=== PATIENT | male | born 1945 | race Caucasian/White ===

== ENCOUNTER 2018-11-20 17:22 | Inpatient (IN) ==
[2018-11-20] MEDS ORDERED: Ondansetron 4 MG/2 ML VIAL IVP STA (17:50)
--- NOTE | 2018-11-20 18:20 | Emergency Department Note ---
Disposition Clinical Impression: RUQ abdominal pain, Transaminitis Disposition: Admitted As Inpatient Time of Disposition: 19:12 General Adult HPI - General Chief complaint: UC Abdominal Pain Stated complaint: Gallbladder Time Seen by Provider: 11/20/18 17:35 Source: patient Mode of arrival: ambulatory Limitations: no limitations Nursing Notes Reviewed: Yes Vital Signs Reviewed: Yes - History of Present Illness HPI Narrative: 73M with PMHx of COPD, diabetes, hypertension and hyperlipidemia presents emergency department after an abnormal CAT scan done at the [place]. Patient presented today for several days of worsening epigastric burning and had a CT scan of his abdomen performed which showed cholelithiasis with possible pericholecystic fluid. Patient was transferred to our facility for further evaluation of possible cholecystitis. Outpatient labs demonstrated a leukocytosis and elevated liver enzymes. Pt is feeling better at this time after receiving a GI cocktail. Patient states that he has been having epigastric and right upper quadrant pain that has been worsening over the past several days he describes this as burning in nature. He is also admitting to some nausea but no vomiting. He has not had any difficulties with bowel movements. He has never had any difficulties at this before. He denies fevers, chills, chest pain, shortness breath, dysuria. Pain Scale: 0 - Related Data Home Medications Medication Instructions Recorded Confirmed Atorvastatin Calcium [Lipitor] 80 mg PO HS 11/20/18 11/20/18 Baclofen [Lioresal] 10 mg PO BID PRN 11/20/18 11/20/18 Chlorthalidone 25 mg PO DAILY 11/20/18 11/20/18 Cholecalciferol (D-3) [Vitamin D] 2,000 unit PO DAILY 11/20/18 11/20/18 Cholecalciferol (D-3) [Vitamin D] 500 unit PO BID 11/20/18 11/20/18 Diltiazem CD (24hr) [Cardizem CD] 180 mg PO DAILY 11/20/18 11/20/18 Dulaglutide [Trulicity] 1.5 mg SQ DAILY 11/20/18 11/20/18 Fluticasone Furoate [Arnuity 50 mcg IH DAILY PRN 11/20/18 11/20/18 Ellipta] Insulin ASPART [NovoLOG] 18 unit SQ DAILY 11/20/18 11/20/18 Insulin ASPART [NovoLOG] 20 unit SQ 1800 11/20/18 11/20/18 Insulin Glargine,Hum.rec.anlog 50 unit SQ BID 11/20/18 11/20/18 [Basaglar Federicoikpen U-100] Lisinopril [Zestril] 40 mg PO DAILY 11/20/18 11/20/18 Potassium Chloride [Klor-Con 10] 20 meq PO DAILY 11/20/18 11/20/18 Ranitidine HCl [Acid Handle Bender] 150 mg PO BID 11/20/18 11/20/18 Rivaroxaban [Xarelto] 20 mg PO 1800 11/20/18 11/20/18 Tramadol HCl [Ultram] 50 mg PO TID PRN 11/20/18 11/20/18 metFORMIN [Glucophage] 1,000 mg PO BIDWM 11/20/18 11/20/18 Allergies Allergy/AdvReac Type Severity Reaction Status Date / Time nifedipine [From Procardia] Allergy See Verified 11/20/18 18:12 Comments All systems ED: reviewed and negative except as stated. Review of Systems: As Per HPI Constitutional: Denies: fever, chills, weakness Cardiovascular: Denies: chest pain, palpitations, dyspnea on exertion Respiratory: Denies: cough, dyspnea, wheezes Gastrointestinal: Reports: abdominal pain, nausea. Denies: vomiting, diarrhea, constipation Genitourinary: Denies: dysuria, hematuria Musculoskeletal: Denies: back pain Integumentary: Denies: rash Neurological: Denies: headache Endocrine: Denies: fatigue Past Medical History - Past Medical History Attestation: Yes The following information was validated with the patient. Source: patient Medical history: Reports: aortic aneurysm, COPD, diabetes, hyperlipidemia, hypertension Psychiatric history: Reports: no psych history - Social History Smoking Status: Never smoker Smokeless Tobacco Status: No Alcohol use: Reports: none Drug use: Reports: none Physical Exam - General Limitations: no limitations General appearance: alert, in no apparent distress - Head Head exam: atraumatic, normocephalic - Eye Eye exam: Present: normal appearance, scleral icterus - Chest Chest inspection: Present: normal inspection. Absent: tenderness, rash - Respiratory Respiratory exam: Present: normal lung sounds bilaterally. Absent: wheezes - Cardiovascular Cardiovascular exam: Present: regular rate, normal rhythm - Abdominal Exam Abdominal exam: Present: soft, tenderness, Greenberg's sign. Absent: distention, guarding, rebound, rigidity, tenderness at McBurney's Point Abdominal tenderness: Present: RUQ, diffuse, mild - Extremities Exam Extremities exam: Present: normal inspection. Absent: tenderness, pedal edema - Neurological Exam Neurological exam: Present: alert, oriented X3 - Psychiatric Psychiatric exam: Present: normal affect, normal mood - Skin Skin exam: Present: warm, dry, intact Course Vital Signs Temperature 99.8 F H 11/20/18 17:30 Pulse Rate 96 11/20/18 17:30 Respiratory Rate 14 11/20/18 17:30 Blood Pressure 137/92 11/20/18 17:30 O2 Sat by Pulse Oximetry 96 11/20/18 17:30 Temperature 99.8 F H 11/20/18 17:30 Pulse Rate 96 11/20/18 17:30 Respiratory Rate 14 11/20/18 17:30 Blood Pressure 137/92 11/20/18 17:30 O2 Sat by Pulse Oximetry 96 11/20/18 17:30 Oxygen Delivery Oxygen Delivery Room Air Medical Decision Making - [facility] Narrative Medical decision making narrative: Patient presents from the [place] after an abnormal CAT scan demonstrates possible cholecystitis. We will obtain EKG, basic labs, troponin, and an ultrasound of the right upper quadrant to look for signs of acute cholecystitis. 1904 - patient's EKG does not demonstrate any acute abnormalities. Ultrasound of the right upper quadrant shows some possible CBD dilatation at 8 mm without signs of acute cholecystitis. Spoke with the hospitalist who is concern for acute ascending cholangitis. He requests we speak with GI prior to admission. 1909 - Dr. Henley has spoken with Dr. Whitlock who states that he will do an ERCP on the patient the morning. He requests we start 3 g of Unasyn and give the patient a liter of fluids. Patient has been accepted to the hospital at this time. - Medical Records Medical records reviewed: Yes I reviewed the patient's medical records. - Lab Data Lab results reviewed: Yes I reviewed the patient's lab results. - Radiology Data Radiology results reviewed: Yes I reviewed the patient's radiology results. - EKG Data EKG #1 EKG attestation: Yes I reviewed and interpreted this EKG. EKG results narrative: EKG obtained at Heart rate 96 bpm, TX interval 230, QRS duration 103, QT 352, QTC 445 Sinus rhythm with a prolonged TX interval. No signs of ST segment elevations or depressions. No other acute T-wave abnormalities. No old EKG for comparison at this time.
[2018-11-20] MEDS ORDERED: cefTRIAXone 2,000 MG in Water for inj. (sterile) 20 ML IVP ONE (18:22)
--- NOTE | 2018-11-20 18:24 | Emergency Department Note ---
Disposition Clinical Impression: Abdominal pain Qualifiers: Abdominal location: right upper quadrant Qualified Code(s): R10.11 - Right upper quadrant pain Disposition: Admitted As Inpatient Condition: Fair Forms: ED Satisfaction Letter, Work/School Release Time of Disposition: 19:12 General Adult HPI - General Chief complaint: ED Abdominal Pain Stated complaint: Gallbladder Time Seen by Provider: 11/20/18 17:35 Source: patient Mode of arrival: ambulatory Limitations: no limitations Nursing Notes Reviewed: Yes Vital Signs Reviewed: Yes - History of Present Illness Pain Scale: 0 - Related Data Home Medications Medication Instructions Recorded Confirmed Atorvastatin Calcium [Lipitor] 80 mg PO HS 11/20/18 11/20/18 Baclofen [Lioresal] 10 mg PO BID PRN 11/20/18 11/20/18 Chlorthalidone 25 mg PO DAILY 11/20/18 11/20/18 Cholecalciferol (D-3) [Vitamin D] 2,000 unit PO DAILY 11/20/18 11/20/18 Cholecalciferol (D-3) [Vitamin D] 500 unit PO BID 11/20/18 11/20/18 Diltiazem CD (24hr) [Cardizem CD] 180 mg PO DAILY 11/20/18 11/20/18 Dulaglutide [Trulicity] 1.5 mg SQ DAILY 11/20/18 11/20/18 Fluticasone Furoate [Arnuity 50 mcg IH DAILY PRN 11/20/18 11/20/18 Ellipta] Insulin ASPART [NovoLOG] 18 unit SQ DAILY 11/20/18 11/20/18 Insulin ASPART [NovoLOG] 20 unit SQ 1800 11/20/18 11/20/18 Insulin Glargine,Hum.rec.anlog 50 unit SQ BID 11/20/18 11/20/18 [Basaglar Kwikpen U-100] Lisinopril [Zestril] 40 mg PO DAILY 11/20/18 11/20/18 Potassium Chloride [Klor-Con 10] 20 meq PO DAILY 11/20/18 11/20/18 Ranitidine HCl [Acid Cigarette Tipper] 150 mg PO BID 11/20/18 11/20/18 Rivaroxaban [Xarelto] 20 mg PO 1800 11/20/18 11/20/18 Tramadol HCl [Ultram] 50 mg PO TID PRN 11/20/18 11/20/18 metFORMIN [Glucophage] 1,000 mg PO BIDWM 11/20/18 11/20/18 Allergies Allergy/AdvReac Type Severity Reaction Status Date / Time nifedipine [From Procardia] Allergy See Verified 11/20/18 18:12 Comments Past Medical History - Past Medical History Medical history: Reports: aortic aneurysm, COPD, diabetes, hyperlipidemia, hypertension Psychiatric history: Reports: no psych history - Social History Smoking Status: Never smoker Smokeless Tobacco Status: No Alcohol use: Reports: none Drug use: Reports: none Physical Exam - General Limitations: no limitations General appearance: alert Course Vital Signs Temperature 99.8 F H 11/20/18 17:30 Pulse Rate 96 11/20/18 17:30 Respiratory Rate 14 11/20/18 17:30 Blood Pressure 137/92 11/20/18 17:30 O2 Sat by Pulse Oximetry 96 11/20/18 17:30 Temperature 99.8 F H 11/20/18 18:18 Pulse Rate 96 11/20/18 18:56 Respiratory Rate 20 11/20/18 18:56 Blood Pressure 138/88 11/20/18 18:56 O2 Sat by Pulse Oximetry 95 11/20/18 18:56 Oxygen Delivery Oxygen Delivery Room Air Attestation Statement - Attestation Attestation: I examined this patient and my medical decision-making was reviewed with the Resident Physician. I agree with the documented findings, disposition and treatment plan as described except to the extent set forth below. Patient to the ED with an abnormal gallbladder on his CT scan. Patient has had upper abdominal pain and inability for a couple of days. He went to the [place] urgent care and had an abdominal CT scan was concerning for cholecystitis and possible choledocholithiasis. On examination he has right upper quadrant abdominal tenderness. Plan. [place]. Repeat labs. Blood cultures and lactic acid. Likely admission. No signs of acute cholecystitis on ultrasound. The patient is given broad- spectrum antibiotics regardless. He is admitted to medicine with GI consult. Gallbladder Ultrasound 11/20/18 17:40 IMPRESSION: 1. The gallbladder is under distended, which partially limits evaluation. There appears to be a mobile stone in the gallbladder with gallbladder wall thickening. No sonographic Greenberg sign is present. 2. Mild diffuse fatty infiltration of the liver. D/ / Cesar Dalal MD / Cesar Dalal MD Interpreting Provider: Cesar Dalal MD
[2018-11-20] MEDS ORDERED: 0.9 % Sodium Chloride 1,000 ML IVC ONE (19:09)
[2018-11-20] MEDS ORDERED: Ampicillin/Sulbactam 3,000 MG in 0.9 % Sodium Chloride Mini Bag 100 ML IVPB ONE (19:09)
[2018-11-20 19:14] LABS: INR 1.5; Prothrombin Time 16.5 Seconds (9.4-12.1)
[2018-11-20 19:24] LABS: Alanine Aminotransferase 398 Units/L (7-52); Albumin 4.2 g/dL (3.5-5.7); Albumin/Globulin Ratio 1.8 (1.1-2.2); Alkaline Phosphatase 171 Units/L (34-104); Aspartate Amino Transferase 248 Units/L (13-39); BUN/Creatinine Ratio 14 (6-26); Bilirubin,Total 5.7 mg/dL (0.3-1.0); Blood Urea Nitrogen 16 mg/dL (8-23); Calcium 9.2 mg/dL (8.6-10.3); Carbon Dioxide 29 mEq/L (23-29); Chloride 98 mEq/L (98-107); Globulin 2.3 g/dL (2.4-3.5); Glucose 240 mg/dL (70-105); Osmolality,Calculated 293 (280-300); Potassium 3.2 mEq/L (3.5-5.1); Sodium 137 mEq/L (136-145); Total Protein 6.5 g/dL (6.4-8.9); eGFR For African Americans > 60 (> 60); eGFR For Non-African Americans > 60 (> 60)
[2018-11-20 19:25] LABS: Basophils % 0.2 %; Eosinophils % 0.2 %; Hematocrit 45.3 % (37.5-50.1); Hemoglobin 14.9 g/dL (12.9-16.9); Immature Granulocytes % 0.6 % (0-4); Lymphocytes # 0.7 K/mcL (0.6-4.6); Mean Corpuscular HGB Conc 32.9 g/dL (31.6-35.5); Mean Corpuscular Hemoglobin 26.8 pg (28.0-33.3); Mean Corpuscular Volume 81.5 fL (83.0-100.0); Mean Platelet Volume 10.6 fL (9.4-12.4); Monocytes # 0.9 K/mcL (0.0-1.3); Monocytes % 8.6 %; Neutrophils # 8.6 K/mcL (1.6-8.9); Platelet Count 186 K/mcL (140-400); Red Blood Count 5.56 M/mcL (4.19-5.50); Red Cell Distribution Width 15.4 % (11.5-14.5); Segmented Neutrophils % 83.4 %; White Blood Count 10.3 K/mcL (4.3-11.1)
[2018-11-20 19:35] LABS: Troponin I 0.04 ng/mL (< 0.04)
[2018-11-20] MEDS ORDERED: Naloxone 0.4 MG/ML INJ IVP PRN (20:23)
[2018-11-20] MEDS ORDERED: Ondansetron ODT 4 MG TAB.RAPDIS SL PRN (20:23)
--- NOTE | 2018-11-20 20:37 | Internal Med History&Physical ---
Date of Encounter: 11/21/18 Time of Encounter: 20:31 Internal Medicine - H&P: HPI Chief complaint: abdominal pain. Admitted From: Home History of present illness: Mr. Murrell is a 73 year old male with past medical history of hypertension, type 2 diabetes, atrial fibrillation on xeralto, severe CAD status post stenting, COPD not oxygen dependent presented to the ED for acute on chronic abdominal pain. Face to face encounter occurred at 8:30pm. Patient stated that he has been having abdominal pain for around a year that is mostly left side positional sharp exacerbated laying in the left side improves with rest and laying in a different position. Patient however yesterday while going to a pickup truck. Noticed the pain progressed to become sharp umbilical 10/10 related that did not alleviate with movement and exacerbated associated with nausea, fever, no change in bowel, dysuria, chest pain or shortness of breath. Patient reported that he have went to the [place] and was unable to go [place] due to the ED being closed thus came here. Personally Reviewed patient's past medical, surgical, family and social history. Family history both parents of old age, patient denied smoking drinking or drugs. Patient stated that he has history of abdominal aortic aneurysm that is unclear of size (5 cm x 7 cm that is followed up every 6 months). Patient also complained of left shoulder pain that is sharp and worst with movement has been going on for a few years and did not seek attention to it. CODE STATUS was discussed and patient proceed with full code. Past Med Surg Social Fam HX - Past Medical History Medical history: aortic aneurysm, COPD, diabetes, hyperlipidemia, hypertension Psychiatric history: no psych history - Social History Smoking Status: Never smoker Smokeless Tobacco Status: No Alcohol use: none Drug use: none Internal Medicine - H&P: Meds Atorvastatin Calcium [Lipitor] 80 mg PO HS 11/20/18 [History] Baclofen [Lioresal] 10 mg PO BID PRN 11/20/18 [History] Calcium Carbonate/Vitamin D3 [Calcium 500-Vit D3 200 Caplet] 1 tab PO BID 11/20/18 [History] Chlorthalidone 25 mg PO DAILY 11/20/18 [History] Cholecalciferol (D-3) [Vitamin D] 2,000 unit PO DAILY 11/20/18 [History] Diltiazem CD (24hr) [Cardizem CD] 180 mg PO DAILY 11/20/18 [History] Dulaglutide [Trulicity] 1.5 mg SQ TH 11/20/18 [History] Fluticasone Furoate [Arnuity Ellipta] 50 mcg IH DAILY PRN 11/20/18 [History] Insulin ASPART [NovoLOG] 18 unit SQ QAM 11/20/18 [History] Insulin ASPART [NovoLOG] 20 unit SQ QPM 11/20/18 [History] Insulin Glargine,Hum.rec.anlog [Basaglar Kwikpen U-100] 50 unit SQ BID 11/20/18 [History] Lisinopril [Zestril] 40 mg PO DAILY 11/20/18 [History] Metformin HCl [Glucophage] 1,000 mg PO BID 11/20/18 [History] Potassium Chloride [Klor-Con 10] 20 meq PO DAILY 11/20/18 [History] Ranitidine HCl [Acid Paving Inspector] 150 mg PO BID 11/20/18 [History] Rivaroxaban [Xarelto] 20 mg PO 1800 11/20/18 [History] Tramadol HCl [Ultram] 50 mg PO TID PRN 11/20/18 [History] Allergy/AdvReac Type Severity Reaction Status Date / Time nifedipine [From Procardia] AdvReac Headache Verified 11/20/18 23:58 All Systems PM: A 10-system review of systems was performed and is negative for pertinent findings except as documented above in the HPI. Review of systems: General: No unintentional weightloss, + fever. Head: No headahce, No injury. Ears: No discharge, No earache Eyes: No drainage, No eye pain Mouth and Throat: No new ulcers, No pain Nose and Sinus: No new congestion, No pain, Respiratory: No cough, No sputum production, No dyspnea Cardiovascular: No chest pain, No palpitations. Gastrointestinal: + nausea, + abdominal pain Genital Tract: No discharge, No pain Urinary Tract: No dysuria, No discharge. MSK: No new/worsening joint pain or new/worsening muscle ache. Endocrine: No cold intolerance, No polyuria Psychological: No suicidal, No homocidal ideation. - Constitutional Vitals: Temp Pulse Resp BP Pulse Ox 99.8 F H 96 20 133/94 95 11/20/18 18:18 11/20/18 18:56 11/20/18 19:55 11/20/18 19:55 11/20/18 18:56 Exam: General Appearance: Appearing as age, well-nourished in no acute distress. Head: Atraumatic normocephalic Skin: Normal texture, normal turgor, warm, dry. Eyes: Conjunctivae not pale with no erythema, drainage, or ulcers. icteric. Neck: No Lymphadenopathy in the anterior/posterior cervical chain. No thyromegaly, masses or ulcers. Trachea midline. Heart: RRR, no murmurs. Capillary refill 3 seconds Lungs: No accessory muscle usage, lungs clear to auscultation bilaterally, no wheezes or crackles. Extremities: No pitting edema, clubbing, cyanosis, or ulcers. Abdomen: distended, normoactive bowel sounds. tender to palpation worse in the RUQ with negative greenberg, rovsing, and mcburney tendernes. no hepatomegally. No guarding. Neuro: AOx3 with no new sensory loss or focal deficits. MSK: Strength 5/5 Upper extremity equal bilaterally. Strength 5/5 Lower extremity equal bilaterally Internal Med - H&P Results - Labs CBC & Chem 7: 11/20/18 17:40 11/20/18 18:42 Labs: Short CBC 11/20/18 Range/Units 17:40 WBC 10.3 (4.3-11.1) K/mcL Hgb 14.9 (12.9-16.9) g/dL Hct 45.3 (37.5-50.1) % Plt Count 186 (140-400) K/mcL Neutrophils # 8.6 (1.6-8.9) K/mcL BMP 11/20/18 18:42 Sodium 137 Potassium 3.2 L Chloride 98 Carbon Dioxide 29 BUN 16 Creatinine 1.11 Glucose 240 H Calcium 9.2 Cardiac Enzymes 11/20/18 Range/Units 18:42 Troponin I 0.04 H* (< 0.04) ng/mL Liver Function 11/20/18 Range/Units 18:42 Total Bilirubin 5.7 H (0.3-1.0) mg/dL AST 248 H (13-39) Units/L ALT 398 H (7-52) Units/L Alkaline Phosphatase 171 H (34-104) Units/L Albumin 4.2 (3.5-5.7) g/dL - Impressions ITS Impressions Gallbladder Ultrasound 11/20/18 17:40 IMPRESSION: 1. The gallbladder is under distended, which partially limits evaluation. There appears to be a mobile stone in the gallbladder with gallbladder wall thickening. No sonographic Greenberg sign is present. 2. Mild diffuse fatty infiltration of the liver. D/ / Cesar Dalal MD / Cesar Dalal MD Interpreting Provider: Cesar Dalal MD Chest X-Ray 11/20/18 17:50 IMPRESSION: Cardiomegaly with no acute finding in the chest. D/ / Danny Schaeffer MD / Danny Schaeffer MD Interpreting Provider: Danny Schaeffer MD - Summary of Assessment and Plan Summary of Assessment and Plan: 1.Abdominal pain: Etiology choledocholithiasis with suspected AAA Ultrasound showed cholelithiasis with common bile duct enlargement at 8 mm. History of AAA reported 5-7cm in legth- US abdomen to check for size. requesting outside records. Consult GI for ERCP Pain control and NPO. 2. Hypokalemia: Replace 3.Uncontrolled type 2 diabetes, Insulin sliding scale correction. We will continue to monitor 4. Elevated LFTs: Hepatitis panel ordered, ultrasound liver showed no intrahepatic biliary ductal dilatation 5. Elevated troponin: Patient remains asymptomatic EKG my interpretation showing normal sinus rhythm with primary AV block. likely demand ischemia. Continue to trend, and cardiology consultation Chronic medical conditions: Atrial fibrillation: Continue anticoagulation and Hypertension: Held medication COPD: Do not scheduled Severe CAD: Continue medication. DVT prophylaxis: Patient is a well-developed ago Disposal: Patient will likely stay for 2 days and more - Time Spent With Patient Total time spent is greater than 37 minutes 50% in coordination of care (as documented) at patient's floor/unit and/or counseling patient: Greater than 35 minutes - VTE Reasons for not Prescribing Prophylaxis: Not indicated-Anticoagulated or INR therapeutic
[2018-11-20] MEDS ORDERED: Potassium Chloride Elixir 20 MEQ/15 ML UDC PO ONE (20:59)
[2018-11-20] MEDS ORDERED: *HR* Dextrose 50 % in Water (Syg) 50 ML SYRINGE IVP PRN (21:01)
[2018-11-20] MEDS ORDERED: Dextrose Gel 15 GM/37.5 ML TUBE PO PRN ×2 (21:01)
[2018-11-20] MEDS ORDERED: D5% in Water 1,000 ML IVC PRN (21:01)
[2018-11-20 21:24] LABS: Estimated Average Glucose 186 mg/dl
[2018-11-21] MEDS: Insulin LISPRO 300 UNITS/3 ML VIAL SQ SCH ×4 (00:48→17:45)
[2018-11-21] MEDS: Insulin DETEMIR 100 UNIT/ML X5UNITS SQ SCH ×3 (00:48→19:56)
[2018-11-21] MEDS: MetroNIDAZOLE 500 MG/100 ML 500 MG/100 ML BAG IVPB SCH ×3 (00:49→15:23)
[2018-11-21] MEDS: Acetaminophen 650 MG RECTAL SUPP RC PRN ×2 (01:06→08:11)
[2018-11-21 05:50] LABS: Basophils % 0.3 %; Eosinophils % 0.1 %; Hematocrit 48.6 % (37.5-50.1); Hemoglobin 15.5 g/dL (12.9-16.9); Immature Granulocytes % 0.4 % (0-4); Lymphocytes # 0.5 K/mcL (0.6-4.6); Lymphocytes % 5.3 %; Mean Corpuscular HGB Conc 31.9 g/dL (31.6-35.5); Mean Corpuscular Hemoglobin 26.6 pg (28.0-33.3); Mean Corpuscular Volume 83.4 fL (83.0-100.0); Mean Platelet Volume 10.6 fL (9.4-12.4); Monocytes # 0.5 K/mcL (0.0-1.3); Monocytes % 5.1 %; Neutrophils # 8.4 K/mcL (1.6-8.9); Platelet Count 162 K/mcL (140-400); Red Blood Count 5.83 M/mcL (4.19-5.50); Red Cell Distribution Width 15.5 % (11.5-14.5); Segmented Neutrophils % 88.8 %; White Blood Count 9.5 K/mcL (4.3-11.1)
[2018-11-21 06:01] LABS: INR 1.4; Prothrombin Time 15.5 Seconds (9.4-12.1)
[2018-11-21 06:09] LABS: Alanine Aminotransferase 342 Units/L (7-52); Albumin 4.5 g/dL (3.5-5.7); Albumin/Globulin Ratio 1.6 (1.1-2.2); Alkaline Phosphatase 182 Units/L (34-104); Aspartate Amino Transferase 169 Units/L (13-39); BUN/Creatinine Ratio 13 (6-26); Bilirubin,Total 4.4 mg/dL (0.3-1.0); Blood Urea Nitrogen 16 mg/dL (8-23); Calcium 9.5 mg/dL (8.6-10.3); Carbon Dioxide 29 mEq/L (23-29); Chloride 98 mEq/L (98-107); Globulin 2.8 g/dL (2.4-3.5); Glucose 174 mg/dL (70-105); Magnesium 1.5 mg/dL (1.6-2.6); Osmolality,Calculated 293 (280-300); Phosphorous 2.9 mg/dL (2.7-4.5); Potassium 3.1 mEq/L (3.5-5.1); Sodium 139 mEq/L (136-145); Total Protein 7.3 g/dL (6.4-8.9); eGFR For African Americans > 60 (> 60); eGFR For Non-African Americans 59 (> 60)
--- NOTE | 2018-11-21 07:52 | Anesthesia Evaluation PreOp ---
Date of Encounter: 11/21/18 Time of Encounter: 09:01 - Past History Planned Operation: ERCP Cardiac History: HTN, Hyperlipidemia, Arrhythmia (a-fib on Xarelto), Cardiac Stent (stents were placed "a long time ago", he reports he is active at home without angina), Other (AAA being followed, CAD) Pulmonary History: COPD (uses O2 at night) CITY PLANNER History: Denies Any Significant HX Other Medical History: Diabetes Type II Anesthesia History: Past Anesthesia (denies PSH) Alcohol Use: none Drug use: none Medications and Allergies Atorvastatin Calcium [Lipitor] 80 mg PO HS 11/20/18 [History] Baclofen [Lioresal] 10 mg PO BID PRN 11/20/18 [History] Calcium Carbonate/Vitamin D3 [Calcium 500-Vit D3 200 Caplet] 1 tab PO BID 11/20/18 [History] Chlorthalidone 25 mg PO DAILY 11/20/18 [History] Cholecalciferol (D-3) [Vitamin D] 2,000 unit PO DAILY 11/20/18 [History] Diltiazem CD (24hr) [Cardizem CD] 180 mg PO DAILY 11/20/18 [History] Dulaglutide [Trulicity] 1.5 mg SQ TH 11/20/18 [History] Fluticasone Furoate [Arnuity Ellipta] 50 mcg IH DAILY PRN 11/20/18 [History] Insulin ASPART [NovoLOG] 18 unit SQ QAM 11/20/18 [History] Insulin ASPART [NovoLOG] 20 unit SQ QPM 11/20/18 [History] Insulin Glargine,Hum.rec.anlog [Basaglar Kwikpen U-100] 50 unit SQ BID 11/20/18 [History] Lisinopril [Zestril] 40 mg PO DAILY 11/20/18 [History] Metformin HCl [Glucophage] 1,000 mg PO BID 11/20/18 [History] Potassium Chloride [Klor-Con 10] 20 meq PO DAILY 11/20/18 [History] Ranitidine HCl [Acid Functional Support Analyst] 150 mg PO BID 11/20/18 [History] Rivaroxaban [Xarelto] 20 mg PO 1800 11/20/18 [History] Tramadol HCl [Ultram] 50 mg PO TID PRN 11/20/18 [History] Allergy/AdvReac Type Severity Reaction Status Date / Time nifedipine [From Procardia] AdvReac Headache Verified 11/20/18 23:58 - Meds/Allergy Pre-op Review Medications Reviewed: Yes Allergies Reviewed: Yes Beta Blockers on Current Med List: No Anesthesia Results - Labs 11/21/18 05:28 11/21/18 05:28 Anesthesia Exam Selected Entries 11/21/18 07:01 Temperature 100.9 F H Pulse Rate 85 Respiratory Rate 16 Blood Pressure 126/75 O2 Sat by Pulse Oximetry 95 Oxygen Flow Rate (LPM) 3 Laboratory Tests 11/21/18 11/21/18 05:28 05:28 WBC 9.5 Hgb 15.5 Hct 48.6 Plt Count 162 Sodium 139 Potassium 3.1 L BUN 16 Creatinine 1.21 Weight: 103kg BMI 31 NPO (# of Hours): 8 - HEENT Pupil (Motor): Pupils equal Mallampati: II Teeth: Edentulous Oral Opening: Greater than 3 - CITY PLANNER LOC: Oriented CITY PLANNER Motor: Normal RUE, Normal LUE, Normal RLE, Normal LLE, Normal Face CITY PLANNER Sensory: Normal: RUE, LUE, RLE, LLE, Face - Cardiac Rhythm: Regular Murmur: None - Pulmonary Breath Sounds: bilateral Clear Respiratory Effort: Symmetrical Anesthesia Assess/Plan ASA Score: 4 Level of consciousness: Cooperative, Oriented Anesthetic Plan: General Monitoring Plan: Standard Monitors Recovery Plan: PACU (agrees to [place])
[2018-11-21] MEDS ORDERED: Lidocaine -MPF 2% 2 ML VIAL ONE (08:02)
[2018-11-21] MEDS ORDERED: Lidocaine -MPF 4% 5 ML AMPUL ONE (08:02)
[2018-11-21] MEDS ORDERED: *HR* Propofol 200 MG/20 ML VIAL IVP ONE (08:14)
[2018-11-21] MEDS ORDERED: *HR* FentaNYL (PF) 100 MCG/2 ML VIAL ONE ×2 (08:38→09:26)
[2018-11-21] MEDS ORDERED: Ondansetron 4 MG/2 ML VIAL ONE (08:44)
[2018-11-21] MEDS ORDERED: *HR* PHENYLEPHRINE 1,000 MCG/10 ML SYRINGE IVP ONE ×3 (08:47→08:56)
--- NOTE | 2018-11-21 08:51 | Electrocardiograph Report ---
[facility] Test Date: 2018-11-20 Pat Name: Demario Murrell Department: [id number] Room: 3A46 Gender: M Electronic Components Assembler: : [id number] Requested By: Bouchra Lucio Order Number: [id number] Reading MD: Maximus Chaudhry Measurements Intervals [place] Rate: 96 P: -33 NE: 230 QRS: 59 QRSD: 103 T: 9 QT: 352 QTc: 445 Interpretive Statements Sinus rhythm Atrial premature complexes Prolonged NE interval Abnormal R-wave progression, late transition Borderline T wave abnormalities Electronically Signed On 11-21-2018 8:49:49 EDT by Maximus Chaudhry
[2018-11-21] MEDS: Ringers Solution, Lactated 1,000 ML IVC SCH (08:57)
[2018-11-21] MEDS ORDERED: *HR* Phenylephrine 10 MG/ML VIAL ONE (09:01)
[2018-11-21] MEDS ORDERED: *HR* Succinylcholine 200 MG/10 ML VIAL IVP ONE (10:04)
--- NOTE | 2018-11-21 10:26 | Gastroenterology Consult Note ---
<Davin Peterson - Last Filed: 11/21/18 10:31> Date of Encounter: 11/21/18 Time of Encounter: 08:20 - Assessment and plan (1) Abdominal pain Current Visit: Yes Status: Acute Assessment and plan: CT at [facility] demonstrates possible cholecystitis. RUQ US showed allbladder is under distended, which partially limits evaluation, appears to be a mobile stone in the gallbladder with gallbladder wall thickening, and fatty liver. On admission WBC 10.3, TB 5.7, AST 248, ALT 398, AP 171, and lipase 80. Today WBC 9.5, TB 4.4, AST 169, ALT 342, AP 182. Patient febrile (Tmax 102.3 at 23:15 yesterday) with chills this morning. Continue antibiotics. Check amylase. Concern for ascending cholangitis and choledocholithiasis. Plan for ERCP today with possible stent placement. Keep patient NPO for procedure. Recommend consulting Surgery for possible cholecystectomy. Qualifiers: Abdominal location: epigastric Qualified Code(s): R10.13 - Epigastric pain - Time Spent With Patient Total time spent is greater than 50% in coordination of care (as documented) at patient's floor/unit and/or counseling patient: GI History of Present Illness - Data of Consult Patient: new to practice Consult date: 11/21/18 Requesting Physician: Huma Pepper MD - Consult Narrative Reason for consult: Possible CBD obstruction, cholangitis History of present illness: Mr. Murrell is a 73 year old male with PMHx of aortic aneurysm, COPD, DM, HLD, H [place] presented to the ED from the [place] for acute on chronic abdominal pain. He reports pain began 2-3 days ago and started in epigastric region and radiated to his back between shoulder blades. CT at [place] demonstrates possible cholecystitis. RUQ US showed allbladder is under distended, which partially limits evaluation, appears to be a mobile stone in the gallbladder with gallbladder wall thickening, and fatty liver. On admission WBC 10.3, TB 5.7, AST 248, ALT 398, AP 171, and lipase 80. Today WBC 9.5, TB 4.4, AST 169, ALT 342, AP 182. Patient complains of fever and chills overnight. He states last dose of Xarelto was 2 days ago. Procedure: No record NSAIDs: None Anticoagulation: Xarelto Past Med Surg Social Fam HX - Past Medical History Medical history: aortic aneurysm, COPD, diabetes, hyperlipidemia, hypertension Psychiatric history: no psych history - Social History Smoking Status: Never smoker Smokeless Tobacco Status: No Alcohol use: none Drug use: none - Gastrointestinal Gastrointestinal: Present: as per HPI - Constitutional Constitutional: as per HPI - EENT Eyes: as per HPI Ears: Present: as per HPI Nose, mouth and throat: Present: as per HPI - Cardiovascular Cardiovascular ROS: Present: as per HPI - Respiratory Respiratory IM: Present: as per HPI - Genitourinary Genitourinary: Absent: change in color, Urinary frequency - Neurological ROS Neurological GI: Present: as per HPI - Hematologic/Lymphatic Hematologic/Lymphatic pediatric: Present: as per HPI - Musculoskeletal Musculoskeletal ROS GI: Present: as per HPI - Integumentary Integumentary GI: Present: as per HPI - Psychiatric ROS Psychiatric GI: Present: as per HPI - Endocrine Endocrine IM: Present: as per HPI - Constitutional Vitals: Temp Pulse Resp BP Pulse Ox 101 F H 101 16 149/86 90 11/21/18 08:54 11/21/18 08:54 11/21/18 08:54 11/21/18 08:54 11/21/18 08:54 General appearance: Present: cooperative, A&O X 3, no acute distress, answers questions appropriately - Head Head exam: Present: atraumatic, normocephalic - Eye Eye exam: Present: normal appearance, sclera anicteric - ENT ENT exam: Present: mucous membranes dry - Neck Neck exam general surgery: Present: normal inspection, trachea midline - Respiratory Respiratory exam: Present: CTAB. Absent: rales, rhonchi - Cardiovascular Cardiovascular exam: Present: RRR, +S1, +S2 - GI/Abdominal GI/Abdominal exam: Present: soft, tenderness (mild epigastric tenderness), no peritoneal signs. Absent: distended, firm, guarding - Rectal Rectal exam: Present: deferred - Extremities Exam Extremities exam: Present: warm - Neurological Exam Neurological exam: Present: no focal deficits - Psychiatric Psychiatric exam: Present: normal affect, normal mood - Skin Skin exam: Present: dry, intact, normal color, warm Results - Labs CBC & Chem 7: 11/21/18 05:28 11/21/18 05:28 Labs: Last Result 11/21/18 05:28 Calcium 9.5 Entire Visit 11/21/18 11/21/18 11/21/18 05:28 05:28 05:28 Hgb 15.5 Hct 48.6 PT 15.5 H Total Bilirubin 4.4 H AST 169 H ALT 342 H - ABG ABG results: PT/INR, D-dimer PT 15.5 Seconds (9.4-12.1) H 11/21/18 05:28 - Impressions Impressions Gallbladder Ultrasound 11/20/18 17:40 IMPRESSION: 1. The gallbladder is under distended, which partially limits evaluation. There appears to be a mobile stone in the gallbladder with gallbladder wall thickening. No sonographic Greenberg sign is present. 2. Mild diffuse fatty infiltration of the liver. D/ / Cesar Dalal MD / Cesar Dalal MD Interpreting Provider: Cesar Dalal MD Chest X-Ray 11/20/18 17:50 IMPRESSION: Cardiomegaly with no acute finding in the chest. D/ / Danny Schaeffer MD / Danny Schaeffer MD Interpreting Provider: Danny Schaeffer MD Aorta Ultrasound 11/20/18 20:39 IMPRESSION: Infrarenal abdominal aortic aneurysm measuring up to 3.1 cm. RECOMMENDATIONS: Recommend follow-up every 3 years. Reference: J Am Jennifer Radiol 2013;10:789-794. D/ / Moe Goldberg / Moe Goldberg Interpreting Provider: Moe Goldberg Consult Discharge Plan - Plan Referrals: [facility] [Outside] <Nakia Whitlock - Last Filed: 11/21/18 19:27> Date of Encounter: 11/21/18 - Time Spent With Patient Total time spent is greater than 50% in coordination of care (as documented) at patient's floor/unit and/or counseling patient: GI History of Present Illness - Data of Consult Requesting Physician: Huma Pepper MD - Consult Narrative History of present illness: Mr. Murrell is a 73 year old male - Constitutional Vitals: Temp Pulse Resp BP Pulse Ox 100.3 F H 91 15 120/78 91 11/21/18 19:25 11/21/18 19:25 11/21/18 19:25 11/21/18 19:25 11/21/18 19:25 Results - Labs CBC & Chem 7: 11/21/18 05:28 11/21/18 05:28 Labs: Entire Visit 11/21/18 05:28 Amylase 62 - ABG ABG results: PT/INR, D-dimer PT 15.5 Seconds (9.4-12.1) H 11/21/18 05:28 - Impressions Impressions Chest X-Ray 11/20/18 17:50 IMPRESSION: Cardiomegaly with no acute finding in the chest. D/ / Danny Schaeffer MD / Danny Schaeffer MD Interpreting Provider: Danny Schaeffer MD Aorta Ultrasound 11/20/18 20:39 IMPRESSION: Infrarenal abdominal aortic aneurysm measuring up to 3.1 cm. RECOMMENDATIONS: Recommend follow-up every 3 years. Reference: J Am Jennifer Radiol 2013;10:789-794. D/ / Moe Goldberg / Moe Goldberg Interpreting Provider: Moe Goldberg Abdomen MRI 11/21/18 11:38 IMPRESSION: Magnetic susceptibility artifact in the region of the duodenal ampulla likely from prior surgery. Recommend correlation with prior surgical history. No evidence of biliary or pancreatic ductal dilatation or obstruction. No choledocholithiasis. Possible focal adenomyomatosis of the wall of the gallbladder fundus. No acute abnormality of the gallbladder. 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 Hepatic steatosis. D/ / 11/21/2018 14:30:16 Anatoly Pollock MD / alissa dodson Interpreting Provider: Anatoly Pollock MD - Attending Attestation I have personally performed a face to face evaluation on this patient. I have reviewed and agree with the care plan. History and Exam by me shows: Pt seen, has been having fevers. O/E mild epiagstric tanderness. A: Pt with Abn LFTS with fever concern is for cholangitis. Rec: ERCP today
[2018-11-21 11:03] LABS: Amylase 62 Units/L (29-103); Bilirubin,Direct 2.4 mg/dL (0.0-0.2); Gamma Glutamyl Transpeptidase 457 Units/L (2-30)
--- NOTE | 2018-11-21 12:05 | Cardiology Consult Note ---
<Cesar Mcgill A - Last Filed: 11/21/18 12:36> Date of Encounter: 11/21/18 Time of Encounter: 11:35 Assessment and Plan (1) Elevated troponin Current Visit: Yes Status: Acute 1. Troponin 0.04; denies chest pain; possible demand ischemia r/t lower abdomen pain radiating to shoulder blades; continue to trend. No cardiac rehab consult warranted at this time. 2.. U/S gallbladder appears to be a mobile stone in the gallbladder with gallbladder wallthickening. Greenberg sign was present. Mild diffuse fatty infiltration of the liver. Management per primary service. 3. Chest x-ray showed cardiomegaly with no acute finding in the chest. 4. Hx AAA stable. A/U showed infrarenal abdominal aortic aneurysm measuring up to 3.1 cm. Recommended follow-up every 3 years. 5. Last Echo 2015 EF 60% revealed moderate left diastolic ventricular dysfunction, mild left atrial enlargement, mild aortic and tricuspid regurgitation. NSWMA. Will order Echo. Will discuss and review with Dr. Silva and f/u with recs. Discussion w patient/family: The assessment and plan as outlined above was discussed with the patient and/or family members who expressed understanding and agreement. All questions were answered. Thank you for involving us in the care of your patient. Please call with any questions. History of Present Illness Consult date: 11/21/18 Consult reason: elevated troponin Chief complaint: abdominal pain History of present illness: Mr. Murrell is a 73 year old male PMH of HTN, DM2, A-fib on Xarelto, COPD, AAA, and CAD s/p stents >15 years ago at [facility]; unknown exact date as ptWanda phan historian. Consulted for elevated troponin x 1 (0.04) in the setting of acute onset 10/10 Abdominal pain x 2 days. Describes as lower, constant sharp abdominal pain radiating across abdomen and up between shoulder blades. Admits to left-sided lower chronic abdominal pain reproducible on palpation. Admits to SOB. Denies chest pain, chills, palpitations, fatigue, diaphoresis. Denies aggravating/alleviating factors. Denies other treatments. Past Med Surg Social Fam HX - Past Medical History Attestation: Yes The following information was validated with the patient. Source: patient Medical history: aortic aneurysm, COPD, diabetes, hyperlipidemia, hypertension Psychiatric history: no psych history - Social History Smoking Status: Never smoker Smokeless Tobacco Status: No Alcohol use: none Drug use: none Medications and Allergies Atorvastatin Calcium [Lipitor] 80 mg PO HS 11/20/18 [History] Baclofen [Lioresal] 10 mg PO BID PRN 11/20/18 [History] Calcium Carbonate/Vitamin D3 [Calcium 500-Vit D3 200 Caplet] 1 tab PO BID 11/20/18 [History] Chlorthalidone 25 mg PO DAILY 11/20/18 [History] Cholecalciferol (D-3) [Vitamin D] 2,000 unit PO DAILY 11/20/18 [History] Diltiazem CD (24hr) [Cardizem CD] 180 mg PO DAILY 11/20/18 [History] Dulaglutide [Trulicity] 1.5 mg SQ TH 11/20/18 [History] Fluticasone Furoate [Arnuity Ellipta] 50 mcg IH DAILY PRN 11/20/18 [History] Insulin ASPART [NovoLOG] 18 unit SQ QAM 11/20/18 [History] Insulin ASPART [NovoLOG] 20 unit SQ QPM 11/20/18 [History] Insulin Glargine,Hum.rec.anlog [Basaglar Kwikpen U-100] 50 unit SQ BID 11/20/18 [History] Lisinopril [Zestril] 40 mg PO DAILY 11/20/18 [History] Metformin HCl [Glucophage] 1,000 mg PO BID 11/20/18 [History] Potassium Chloride [Klor-Con 10] 20 meq PO DAILY 11/20/18 [History] Ranitidine HCl [Acid Circular Saw Edge Fuser] 150 mg PO BID 11/20/18 [History] Rivaroxaban [Xarelto] 20 mg PO 1800 11/20/18 [History] Tramadol HCl [Ultram] 50 mg PO TID PRN 11/20/18 [History] Allergy/AdvReac Type Severity Reaction Status Date / Time nifedipine [From Procardia] AdvReac Headache Verified 11/20/18 23:58 All Systems Review: The remainder of the systems were reviewed and are negative - Cardiovascular Cardiovascular: as per HPI Physical Examination Vital Signs, Last 4 Hours Temp Pulse Resp BP Pulse Ox 11/21/18 11:19 99.2 F 89 18 124/82 95 11/21/18 11:09 89 18 126/86 98 11/21/18 10:59 90 23 131/87 93 11/21/18 10:49 99.0 F 93 24 141/85 96 11/21/18 08:54 101 F H 101 16 149/86 90 General: Conversant, No Apparent Distress HEENT: Atraumatic, Normocephaly, Mucus Membranes Moist Neck: No JVD, Normal carotid pulses Cardiac: Reg Rate and Rhythm, Normal S1 and S2, No Murmur Lungs: Normal Breath Sounds, No Wheeze, Rales, Rhonchi Neuro: Alert and responsive, No focal deficits noted Abdomen: Soft, Non-Tender Skin: No rashes noted on visualized skin Musculoskeletal: No Chest Wall Tenderness Extremities: No Clubbing, No Cyanosis, No Edema, Normal Pulses Results 11/21/18 05:28 11/21/18 05:28 Lab Results Laboratory Tests 11/20/18 11/21/18 11/21/18 17:40 05:28 05:28 Hgb 15.5 Hct 48.6 Potassium 3.1 L Creatinine 1.21 Est GFR (Non-Af Amer) 59 L Hemoglobin A1c 8.1 H Magnesium 1.5 L AST 169 H ALT 342 H Laboratory Tests 11/20/18 18:42 Troponin I 0.04 H* Impressions Gallbladder Ultrasound 11/20/18 17:40 IMPRESSION: 1. The gallbladder is under distended, which partially limits evaluation. There appears to be a mobile stone in the gallbladder with gallbladder wall thickening. No sonographic Greenberg sign is present. 2. Mild diffuse fatty infiltration of the liver. D/ / Cesar Dalal MD / Cesar Dalal MD Interpreting Provider: Cesar Dalal MD Chest X-Ray 11/20/18 17:50 IMPRESSION: Cardiomegaly with no acute finding in the chest. D/ / Danny Schaeffer MD / Danny Schaeffer MD Interpreting Provider: Danny Schaeffer MD Aorta Ultrasound 11/20/18 20:39 IMPRESSION: Infrarenal abdominal aortic aneurysm measuring up to 3.1 cm. RECOMMENDATIONS: Recommend follow-up every 3 years. Reference: J Am Jennifer Radiol 2013;10:789-794. D/ / Moe Goldberg / Moe Goldberg Interpreting Provider: Moe Goldberg Active Medications Acetaminophen (Tylenol 650mg Supp) 650 mg RC Q6HR PRN PRN Reason: Fever Stop: 05/22/19 23:21 Last Admin: 11/21/18 08:11 Dose: 650 mg Documented by: Atorvastatin Calcium (Lipitor) 80 mg PO HS LISBETH Stop: 05/23/19 21:01 Dextrose/Water (Dextrose 50% (Syg)) 25 ml IVP AD PRN PRN Reason: Hypoglycemia Stop: 05/22/19 21:02 Diltiazem HCl (Cardizem Cd) 180 mg PO DAILY LISBETH Stop: 05/23/19 09:01 Famotidine (Pepcid) 20 mg PO BIDAC LISBETH Stop: 05/23/19 07:31 Glucagon (Glucagen) 1 mg IM ONCE PRN PRN Reason: Hypoglycemia Stop: 05/22/19 21:02 Glucose (Gluctose) 15 gm PO ONCE PRN PRN Reason: Hypoglycemia Stop: 05/22/19 21:02 Glucose (Gluctose) 30 gm PO ONCE PRN PRN Reason: Hypoglycemia Stop: 05/22/19 21:02 Dextrose (Dextrose 5%) 1,000 mls @ 100 mls/hr IVC .Q10H PRN PRN Reason: HYPOGLYCEMIA Stop: 05/22/19 21:02 Levofloxacin/Dextrose (Levaquin Premix 750mg/150 Ml) 750 mg in 150 mls @ 100 mls/hr IVPB DAILY LISBETH; Protocol Stop: 05/23/19 09:01 Metronidazole (Flagyl Premix 500 Mg/100 Ml) 500 mg in 100 mls @ 100 mls/hr IVPB Q8HR [facility]ISB[facility] Stop: 05/23/19 00:01 Last Infusion: 11/21/18 09:20 Dose: Infused Documented by: Lactated Ringer's (Lactated Ringers) 1,000 mls @ 50 mls/hr IVC .Q20H LISBETH Stop: 05/23/19 09:01 Last Admin: 11/21/18 08:57 Dose: 50 mls/hr Documented by: Insulin Detemir (Levemir) 25 unit SQ BID [facility] Stop: 05/22/19 21:07 Last Admin: 11/21/18 00:48 Dose: 25 unit Documented by: Insulin Human Lispro (Humalog) 0 units SQ Q6HR LISBETH; Protocol Stop: 05/23/19 00:01 Last Admin: 11/21/18 06:09 Dose: 6 unit Documented by: Mometasone Furoate (Asmanex Hfa) 1 puff IH DAILY PRN PRN Reason: Allergy Symptoms Naloxone HCl (Narcan) 0.4 mg IVP Q2MPRN PRN PRN Reason: SEE COMMENTS Stop: 05/22/19 20:24 Ondansetron HCl (Zofran Odt) 4 mg SL Q8HR PRN PRN Reason: Nausea And Vomiting Stop: 05/22/19 20:24 Rivaroxaban (Xarelto) 20 mg PO 1700 [facility] Stop: 05/23/19 17:01 Consult Discharge Plan - Plan Referrals: [facility] [Outside] CHADS2-VASC Score - Score Age: 65-74 (xarelto for A-fib) Sex: Male CHF History: No Hypertension history: Yes Stroke/TIA/Thromboembolism Hx: No Vascular disease history: No Diabetes history: Yes Score: 3 HAS-BLED Score - Score Elderly: Age>65 years Medication usage predisposing to bleeding: Antiplatelet agents, NSAIDs, Anticoagulants Score: 2 <Taqueria Silva - Last Filed: 11/21/18 14:55> Date of Encounter: 11/21/18 - Attending Attestation I have personally performed a face to face evaluation on this patient. I have reviewed and agree with the care plan. History and Exam by me shows: 73-year-old male history of remote PCI 15 years ago unknown cardiac vessels presents with borderline ST changes and a troponin of 0.04 in the setting of elevated LFTs. Patient presented complaining of periumbilical pain possible cholecystectomy in the near future. Patient also has history of atrial fibrillation on Xarelto for stroke risk reduction. His troponins are adynamic likely nonischemic however nonspecific ST changes on EKG in the setting of previous coronary artery disease and multiple stents [address] patient at risk for underlying coronary artery disease. If patient is to have general anesthesia and a cholecystectomy patient would likely benefit from a chemical stress test to help evaluate his risk. Patient also identified interscapular discomfort which may or may not be ischemic in etiology. Currently patient is not having an ischemic event therefore no further cardiac testing unless a cardiac assessment is necessary/surgery planned. Assessment and Plan Discussion w patient/family: The assessment and plan as outlined above was discussed with the patient and/or family members who expressed understanding and agreement. All questions were answered. Thank you for involving us in the care of your patient. Please call with any questions. History of Present Illness History of present illness: Mr. Murrell is a 73 year old male All Systems Review: The remainder of the systems were reviewed and are negative Physical Examination Vital Signs, Last 4 Hours Temp Pulse Resp BP Pulse Ox 11/21/18 14:41 101.1 F H 92 16 125/74 97 11/21/18 13:38 99.0 F 98 16 130/80 95 11/21/18 12:38 101.0 F H 95 16 131/79 95 11/21/18 12:08 100.5 F H 94 18 125/81 93 11/21/18 11:38 101.0 F H 91 24 125/81 93 11/21/18 11:19 99.2 F 89 18 124/82 95 11/21/18 11:09 89 18 126/86 98 11/21/18 10:59 90 23 131/87 93 11/21/18 10:49 99.0 F 93 24 141/85 96 Results 11/21/18 05:28 11/21/18 05:28 Lab Results 11/20/18 11/20/18 11/20/18 17:40 18:42 18:42 WBC 10.3 Hgb 14.9 Hct 45.3 Plt Count 186 INR 1.5 Sodium 137 Potassium 3.2 L Chloride 98 Carbon Dioxide 29 BUN 16 Creatinine 1.11 Glucose 240 H Calcium 9.2 Magnesium Total Bilirubin 5.7 H AST 248 H ALT 398 H Alkaline Phosphatase 171 H Troponin I Amylase Lipase 11/20/18 11/21/18 11/21/18 18:42 05:28 05:28 WBC 9.5 Hgb 15.5 Hct 48.6 Plt Count 162 INR 1.4 Sodium Potassium Chloride Carbon Dioxide BUN Creatinine Glucose Calcium Magnesium Total Bilirubin AST ALT Alkaline Phosphatase Troponin I 0.04 H* Amylase Lipase 80 11/21/18 05:28 WBC Hgb Hct Plt Count INR Sodium 139 Potassium 3.1 L Chloride 98 Carbon Dioxide 29 BUN 16 Creatinine 1.21 Glucose 174 H Calcium 9.5 Magnesium 1.5 L Total Bilirubin 4.4 H AST 169 H ALT 342 H Alkaline Phosphatase 182 H Troponin I Amylase 62 Lipase
[2018-11-21] MEDS: Famotidine 20 MG TABLET PO SCH ×2 (12:31→15:21)
[2018-11-21] MEDS ORDERED: Acetaminophen 325 MG RECTAL SUPP RC PRN (14:34)
[2018-11-21] MEDS: levoFLOXacin 750 MG/150 ML 750 MG/150 ML BAG IVPB SCH (15:22)
[2018-11-21] MEDS: Diltiazem CD (24hr) 180 MG CAPSULE PO SCH (15:22)
[2018-11-21] MEDS: 0.9 % Sodium Chloride 1,000 ML IVC SCH (15:23)
--- NOTE | 2018-11-21 15:40 | Internal Med Progress Note ---
Hospitalist Progress Note - Encounter Date of Encounter: 11/21/18 Time of Encounter: 15:40 - Subjective Interval History: Patient seen and examined. He states that he is very tired and would like to get some rest. He currently denies fever, chills, nausea or vomiting. But he admits mild pain in the right upper quadrant of his abdomen. - Exam Vitals: Temp Pulse Resp BP Pulse Ox 38.4 C H 92 16 125/74 97 11/21/18 14:41 11/21/18 14:41 11/21/18 14:41 11/21/18 14:41 11/21/18 14:41 Exam: GENERAL: Obese patient. Not in distress. Somnolent HEENT: EOMI, PERRLA MOUTH: Moist oral mucosa. NECK:No JVD, No lymph nodes. CHEST AND LUNGS: Normal breath sounds, no wheezes or crackles HEART: S1 and S2 normal, no murmurs ABDOMEN:Moderate RUQ tenderness. SKIN: Normal color, no rashes, no lesions EXTREMITIES: No deformity, no edema, no tenderness, no joint swelling or cl ubbing NEUROLOGICAL: Normal cognition, normal motor and sensory exam. - Assessment and Plan (1) RUQ abdominal pain Current Visit: Yes Status: Acute Assessment and Plan: Patient presented her right upper quadrant pain Moderate tenderness on palpation of right of a quadrant. Patient had ERCP today which was unsuccessful because probe could not get through the ampulla. MRCP showed hepatic steatosis without stones in the biliary tree or gallbladder. Possible adenomyomatosis of the wall of the gallbladder fundus. Ptosis measuring 3-5 mm in the body and tail of pancreas. Will order HIDA scan Patient can have a diet for dinner. Nothing by mouth after midnight for HIDA in the morning. (2) Elevated troponin Current Visit: Yes Status: Acute Assessment and Plan: Patient had elevated troponins on admission Has been reviewed by cardiology We will manage conservatively at this moment since patient does not report chest pain, shortness of breath or lightheadedness. His EKG on admission also did not show any ischemic changes. Cardiology will follow (3) Abdominal aortic aneurysm (AAA) 3.0 cm to 5.5 cm in diameter in male Current Visit: Yes Status: Acute Assessment and Plan: Patient has a known history of abdominal aortic aneurysm Ultrasound admission shows an infrarenal aortic aneurysm with a diameter of 3.1 cm Patient will need a follow-up ultrasound in 3 years. We will notify PCP for outpatient follow-up. (4) Hepatic steatosis Current Visit: Yes Status: Acute Assessment and Plan: Fatty liver observed was on MRI and right upper quadrant ultrasound. Patient's obesity may be a contributing factor to fatty liver Right upper quadrant pain as well as elevation in liver enzymes may be related to hepatic steatosis We will advise on losing at least 10% of his weight in 6 months. will need GI follow-up as outpatient We will monitor (5) Obesity (BMI 30.0-34.9) Current Visit: Yes Status: Acute Assessment and Plan: Patient counseled on weight loss options. (6) Atrial fibrillation Current Visit: Yes Status: Acute Assessment and Plan: On oral Cardizem Rate currently controlled We will hold anticoagulation in anticipation of surgery. (7) Hypertension Current Visit: Yes Status: Acute Assessment and Plan: Resume home meds BP currently controlled We will monitor (8) COPD (chronic obstructive pulmonary disease) Current Visit: Yes Status: Acute Assessment and Plan: Currently not in exacerbation We will give as needed breathing treatments DVT Prophylaxis: Patient on rivaroxaban but will be held in anticipation of possible cholecystectomy PCD's order - Time Spent with Patient Total time spent is greater than 50% in coordination of care (as documented) at patient's floor/unit and/or counseling patient: Internal Medicine: Result - Labs CBC & Chem 7: 11/21/18 05:28 11/21/18 05:28 Labs: Short CBC 11/20/18 11/21/18 Range/Units 17:40 05:28 WBC 10.3 9.5 (4.3-11.1) K/mcL Hgb 14.9 15.5 (12.9-16.9) g/dL Hct 45.3 48.6 (37.5-50.1) % Plt Count 186 162 (140-400) K/mcL Neutrophils # 8.6 8.4 (1.6-8.9) K/mcL BMP 11/20/18 11/21/18 18:42 05:28 Sodium 137 139 Potassium 3.2 L 3.1 L Chloride 98 98 Carbon Dioxide 29 29 BUN 16 16 Creatinine 1.11 1.21 Glucose 240 H 174 H Calcium 9.2 9.5 Cardiac Enzymes 11/20/18 Range/Units 18:42 Troponin I 0.04 H* (< 0.04) ng/mL Liver Function 11/20/18 11/21/18 Range/Units 18:42 05:28 Total Bilirubin 5.7 H 4.4 H (0.3-1.0) mg/dL Direct Bilirubin 2.4 H (0.0-0.2) mg/dL GGT 457 H (2-30) Units/L AST 248 H 169 H (13-39) Units/L ALT 398 H 342 H (7-52) Units/L Alkaline Phosphatase 171 H 182 H (34-104) Units/L Albumin 4.2 4.5 (3.5-5.7) g/dL - ABG Interpretation ABG results: PT/INR, D-dimer PT 15.5 Seconds (9.4-12.1) H 11/21/18 05:28 - Impressions Impressions Gallbladder Ultrasound 11/20/18 17:40 IMPRESSION: 1. The gallbladder is under distended, which partially limits evaluation. There appears to be a mobile stone in the gallbladder with gallbladder wall thickening. No sonographic Greenberg sign is present. 2. Mild diffuse fatty infiltration of the liver. D/ / Cesar Dalal MD / Cesar Dalal MD Interpreting Provider: Cesar Dalal MD Chest X-Ray 11/20/18 17:50 IMPRESSION: Cardiomegaly with no acute finding in the chest. D/ / Danny Schaeffer MD / Danny Schaeffer MD Interpreting Provider: Danny Schaeffer MD Aorta Ultrasound 11/20/18 20:39 IMPRESSION: Infrarenal abdominal aortic aneurysm measuring up to 3.1 cm. RECOMMENDATIONS: Recommend follow-up every 3 years. Reference: J Am Jennifer Radiol 2013;10:789-794. D/ / Moe Goldberg / Moe Goldberg Interpreting Provider: Moe Goldberg Abdomen MRI 11/21/18 11:38 IMPRESSION: Magnetic susceptibility artifact in the region of the duodenal ampulla likely from prior surgery. Recommend correlation with prior surgical history. No evidence of biliary or pancreatic ductal dilatation or obstruction. No choledocholithiasis. Possible focal adenomyomatosis of the wall of the gallbladder fundus. No acute abnormality of the gallbladder. 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 Hepatic steatosis. D/ / 11/21/2018 14:30:16 Anatoly Pollock MD / victorina lima Interpreting Provider: Anatoly Pollock MD - VTE Reasons for not Prescribing Prophylaxis: Not indicated-Anticoagulated or INR therapeutic Consult Discharge Plan - Plan Referrals: [facility] [Outside]
[2018-11-21] MEDS ORDERED: *HR* Rivaroxaban 10 MG TABLET PO SCH (17:00)
[2018-11-22] MEDS: MetroNIDAZOLE 500 MG/100 ML 500 MG/100 ML BAG IVPB SCH ×4 (00:11→23:36)
[2018-11-22] MEDS: Insulin LISPRO 300 UNITS/3 ML VIAL SQ SCH ×5 (02:45→21:28)
[2018-11-22] MEDS: Ringers Solution, Lactated 1,000 ML IVC SCH (07:24)
--- NOTE | 2018-11-22 08:51 | Cardiology Progress Note ---
<Cesar Mcgill - Last Filed: 11/22/18 11:08> Date of Encounter: 11/22/18 Time of Encounter: 10:00 Assessment and Plan (1) Abdominal pain Current Visit: Yes Status: Acute Unsuccessful ERCP; MRCP showed hepatic steatosis without stones in the biliary tree or gallbladder. Possible adenomyomatosis of the wall of the gallbladder fundus. Ptosis measuring 3-5 mm in the body and tail of pancreas. HIDA scan ordered. Management per primary service. Qualifiers: Abdominal location: epigastric Qualified Code(s): R10.13 - Epigastric pain (2) Elevated troponin Current Visit: Yes Status: Acute 1. Troponin 0.04 x 2; possible demand ischemia r/t RUQ and lower abdomen pain radiating to shoulder blades. 2. Denies chest pain. 3. ECHO completed. EF 65% Normal LV chamber size and function. Mild concentric left ventricular hypertrophy. Mild left ventricular diastolic dysfunction. Normal right ventricular structure and function. No evidence of pulmonary hypertension. No significant valvular dysfunction. NSWMA. 4. Rec add tele. On statin, 5. Cardiology will sign off. Re-consult as needed. Will discuss and review with Dr. Silva. (3) Atrial fibrillation Current Visit: Yes Status: Chronic 1. Appears rate controlled on exam. 2. Denies any bleeding concerns. 3. Rec tele 4. On CCB and xarelto. Qualifiers: Atrial fibrillation type: unspecified Qualified Code(s): I48.91 - Unspecified atrial fibrillation (4) Abdominal aortic aneurysm (AAA) 3.0 cm to 5.5 cm in diameter in male Current Visit: Yes Status: Chronic Hx AAA stable. A/U showed infrarenal AAA 3.1 cm. Recommended follow-up every 3 years. Discussion w patient/family: The assessment and plan as outlined above was discussed with the patient and/or family members who expressed understanding and agreement. All questions were answered. Thank you for involving us in the care of your patient. Please call with any questions. Subjective Principal diagnosis: elevated troponin Interval history: Denies chest pain Objective Vital Signs, Last 4 Hours Temp Pulse Resp BP Pulse Ox 11/22/18 07:14 93 11/22/18 06:10 98.3 F 93 15 132/72 93 General: Conversant, No Apparent Distress HEENT: Atraumatic, Normocephaly, Mucus Membranes Moist Neck: No JVD, Normal carotid pulses Cardiac: Reg Rate and Rhythm, Normal S1 and S2, No Murmur Lungs: Normal Breath Sounds, No Wheeze, Rales, Rhonchi Neuro: Alert and responsive, No focal deficits noted Abdomen: Other (RUQ tender to palpitations. ) Skin: No rashes noted on visualized skin Musculoskeletal: No Chest Wall Tenderness Extremities: No Clubbing, No Cyanosis, No Edema, Normal Pulses Results 11/21/18 05:28 11/21/18 05:28 Lab Results Laboratory Tests 11/21/18 11/21/18 05:28 05:28 Hgb 15.5 Hct 48.6 Plt Count 162 Potassium 3.1 L BUN 16 Creatinine 1.21 Est GFR (Non-Af Amer) 59 L Magnesium 1.5 L Total Bilirubin 4.4 H Direct Bilirubin 2.4 H Indirect Bilirubin 2.0 H AST 169 H ALT 342 H Laboratory Tests 11/20/18 11/22/18 18:42 08:43 Troponin I 0.04 H* 0.04 H* Impressions Abdomen MRI 11/21/18 11:38 IMPRESSION: Magnetic susceptibility artifact in the region of the duodenal ampulla likely from prior surgery. Recommend correlation with prior surgical history. No evidence of biliary or pancreatic ductal dilatation or obstruction. No choledocholithiasis. Possible focal adenomyomatosis of the wall of the gallbladder fundus. No acute abnormality of the gallbladder. 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 Hepatic steatosis. D/ / 11/21/2018 14:30:16 Anatoly Pollock MD / eric Interpreting Provider: Anatoly Pollock MD Echocardiogram 11/21/18 12:08 Impressions: LVEF 65%. Normal LV chamber size and function. Mild concentric left ventricular hypertrophy. Mild left ventricular diastolic dysfunction. Normal right ventricular structure and function. No evidence of pulmonary hypertension. No significant valvular dysfunction. Active Medications Acetaminophen (Tylenol 325mg Supp) 325 mg RC Q8HR PRN PRN Reason: Fever Stop: 05/23/19 14:35 Last Admin: 11/21/18 17:37 Dose: 325 mg Documented by: Atorvastatin Calcium (Lipitor) 80 mg PO HS LISBETH Stop: 05/23/19 21:01 Last Admin: 11/21/18 19:57 Dose: 80 mg Documented by: Dextrose/Water (Dextrose 50% (Syg)) 25 ml IVP AD PRN PRN Reason: Hypoglycemia Stop: 05/22/19 21:02 Diltiazem HCl (Cardizem Cd) 180 mg PO DAILY LISBETH Stop: 05/23/19 09:01 Last Admin: 11/21/18 15:22 Dose: 180 mg Documented by: Famotidine (Pepcid) 20 mg PO BIDAC LISBETH Stop: 05/23/19 07:31 Last Admin: 11/21/18 15:21 Dose: 20 mg Documented by: Glucagon (Glucagen) 1 mg IM ONCE PRN PRN Reason: Hypoglycemia Stop: 05/22/19 21:02 Glucose (Gluctose) 15 gm PO ONCE PRN PRN Reason: Hypoglycemia Stop: 05/22/19 21:02 Glucose (Gluctose) 30 gm PO ONCE PRN PRN Reason: Hypoglycemia Stop: 05/22/19 21:02 Dextrose (Dextrose 5%) 1,000 mls @ 100 mls/hr IVC .Q10H PRN PRN Reason: HYPOGLYCEMIA Stop: 05/22/19 21:02 Levofloxacin/Dextrose (Levaquin Premix 750mg/150 Ml) 750 mg in 150 mls @ 100 mls/hr IVPB DAILY [facility]; Protocol Stop: 05/23/19 09:01 Last Admin: 11/21/18 15:22 Dose: 100 mls/hr Documented by: Metronidazole (Flagyl Premix 500 Mg/100 Ml) 500 mg in 100 mls @ 100 mls/hr IVPB Q8HR LISBETH Stop: 05/23/19 00:01 Last Admin: 11/22/18 00:11 Dose: 100 mls/hr Documented by: Lactated Ringer's (Lactated Ringers) 1,000 mls @ 50 mls/hr IVC .Q20H LISBETH Stop: 05/23/19 09:01 Last Admin: 11/22/18 07:24 Dose: Not Given Documented by: Sodium Chloride (0.9 % Sodium Chloride) 1,000 mls @ 75 mls/hr IVC .[id number] LISBETH Stop: 05/23/19 15:01 Last Admin: 11/21/18 15:23 Dose: 75 mls/hr Documented by: Insulin Detemir (Levemir) 25 unit SQ BID [facility] Stop: 05/22/19 21:07 Last Admin: 11/21/18 19:56 Dose: Not Given Documented by: Insulin Human Lispro (Humalog) 0 units SQ Q6HR [facility]; Protocol Stop: 05/23/19 00:01 Last Admin: 11/22/18 07:24 Dose: Not Given Documented by: Mometasone Furoate (Asmanex Hfa) 1 puff IH DAILY PRN PRN Reason: Allergy Symptoms Naloxone HCl (Narcan) 0.4 mg IVP Q2MPRN PRN PRN Reason: SEE COMMENTS Stop: 05/22/19 20:24 Ondansetron HCl (Zofran Odt) 4 mg SL Q8HR PRN PRN Reason: Nausea And Vomiting Stop: 05/22/19 20:24 Rivaroxaban (Xarelto) 20 mg PO 1700 [facility] Stop: 05/23/19 17:01 Last Admin: 11/21/18 17:16 Dose: Not Given Documented by: - Imaging and Cardiology Echo: report reviewed - VTE Reasons for not Prescribing Prophylaxis: Not indicated-Anticoagulated or INR therapeutic Consult Discharge Plan - Plan Referrals: [facility] [Outside] CHADS2-VASC Score - Score Age: 65-74 Sex: Male CHF History: No Stroke/TIA/Thromboembolism Hx: No Vascular disease history: No (on xarelto) Diabetes history: Yes Score: 2 HAS-BLED Score - Score Elderly: Age>65 years Medication usage predisposing to bleeding: Antiplatelet agents, NSAIDs, Anticoagulants Score: 2 <Taqueria Silva - Last Filed: 11/22/18 12:24> Date of Encounter: 11/22/18 Assessment and Plan (1) Elevated troponin Current Visit: Yes Status: Acute 1. Troponin 0.04 x 2; possible demand ischemia r/t RUQ and lower abdomen pain radiating to shoulder blades. 2. Denies chest pain. 3. ECHO completed. EF 65% Normal LV chamber size and function. Mild concentric left ventricular hypertrophy. Mild left ventricular diastolic dysfunction. Nor mal right ventricular structure and function. No evidence of pulmonary hypertension. No significant valvular dysfunction. NSWMA. 4. Rec add tele. On statin, 5. Cardiology will sign off. Re-consult as needed. Will discuss and review with Dr. Silva. I have personally performed a face to face evaluation on this patient. I have reviewed and agree with the care plan. History and Exam by me shows: As above history of remote stenting 15 years ago, borderline ST changes on EKG with interscapular pain possibly related to underlying ischemia versus abdominal discomfort/etiology. No further cardiac testing however patient is at risk for underlying coronary artery disease. If patient is to have general anesthesia for nonurgent cholecystectomy patient would benefit from a cardiac risk assessment. Discussion w patient/family: The assessment and plan as outlined above was discussed with the patient and/or family members who expressed understanding and agreement. All questions were answered. Thank you for involving us in the care of your patient. Please call with any questions. Objective Vital Signs, Last 4 Hours Temp Pulse Resp BP Pulse Ox 11/22/18 12:02 98.6 F 82 15 147/92 95 Results 11/21/18 05:28 11/21/18 05:28 Lab Results 11/22/18 08:43 Troponin I 0.04 H*
--- NOTE | 2018-11-22 11:26 | Event Note ---
Date of Encounter: 11/22/18 Time of Encounter: 11:23 - Cardiology Event Note Re-consult if surgery indicated; will require stress test prior to surgey. Noted EKG changes; Atrial premature complexes; Prolonged AL interval; Abnormal R-wave progression; late transition Borderline T wave abnormalities
[2018-11-22] MEDS: Famotidine 20 MG TABLET PO SCH ×2 (11:59→16:42)
[2018-11-22] MEDS: 0.9 % Sodium Chloride 1,000 ML IVC SCH (12:23)
[2018-11-22] MEDS: Diltiazem CD (24hr) 180 MG CAPSULE PO SCH (12:24)
[2018-11-22] MEDS: levoFLOXacin 750 MG/150 ML 750 MG/150 ML BAG IVPB SCH (12:24)
[2018-11-22] MEDS: Insulin DETEMIR 100 UNIT/ML X5UNITS SQ SCH ×2 (12:25→21:28)
--- NOTE | 2018-11-22 13:07 | Internal Med Progress Note ---
Hospitalist Progress Note - Encounter Date of Encounter: 11/22/18 Time of Encounter: 08:35 - Subjective Interval History: No acute events overnight. Patient here for right upper quadrant pain and is being evaluated for possible cholecystitis. He is due for HIDA scan today. This morning he admits moderate right upper quadrant tenderness and pain with a ssociated nausea but no vomiting. He denies fever and chills - Exam Vitals: Temp Pulse Resp BP Pulse Ox 37.0 C 82 15 147/92 95 11/22/18 12:02 11/22/18 12:02 11/22/18 12:11/22/18 12:11/22/18 12:02 Exam: GENERAL: Obese patient. Not in distress. Alert and oriented x3 HEENT: EOMI, PERRLA MOUTH: Moist oral mucosa. NECK:No JVD, No lymph nodes. CHEST AND LUNGS: Normal breath sounds, no wheezes or crackles HEART: S1 and S2 normal, no murmurs ABDOMEN:Moderate RUQ tenderness. SKIN: Normal color, no rashes, no lesions EXTREMITIES: No deformity, no edema, no tenderness, no joint swelling or clubbing NEUROLOGICAL: Normal cognition, normal motor and sensory exam. - Assessment and Plan (1) RUQ abdominal pain Current Visit: Yes Status: Acute Assessment and Plan: Patient presented with right upper quadrant pain Moderate tenderness on palpation of right of a quadrant. Patient had ERCP yesterday which was unsuccessful because probe could not get through the ampulla. MRCP showed hepatic steatosis without stones in the biliary tree or gallbladder. Possible adenomyomatosis of the wall of the gallbladder fundus. Ptosis measuring 3-5 mm in the body and tail of pancreas. Awaiting HIDA scan results. (2) Hepatic steatosis Current Visit: Yes Status: Acute Assessment and Plan: Fatty liver observed was on MRI and right upper quadrant ultrasound. Patient's obesity may be a contributing factor to fatty liver Right upper quadrant pain as well as elevation in liver enzymes may be related to hepatic steatosis We will advise on losing at least 10% of his weight in 6 months. will need GI follow-up as outpatient We will monitor (3) Elevated troponin Current Visit: Yes Status: Acute Assessment and Plan: Patient had elevated troponins on admission 0.04, 0.04. Seen by Cardio Troponin elevation likely related to demand. Cardio has signed off. Will continue to monitor. (4) Abdominal aortic aneurysm (AAA) 3.0 cm to 5.5 cm in diameter in male Current Visit: Yes Status: Chronic Assessment and Plan: Patient has a known history of abdominal aortic aneurysm Ultrasoundon admission shows an infrarenal aortic aneurysm with a diameter of 3.1 cm Patient will need a follow-up ultrasound in 3 years. We will notify PCP for outpatient follow-up. (5) Obesity (BMI 30.0-34.9) Current Visit: Yes Status: Acute Assessment and Plan: Patient counseled on weight loss options. (6) Atrial fibrillation Current Visit: Yes Status: Chronic Assessment and Plan: On oral Cardizem Rate currently controlled Anticoagulation on hold in anticipation of surgery. (7) Hypertension Current Visit: Yes Status: Acute Assessment and Plan: Resume home meds BP currently controlled We will monitor (8) COPD (chronic obstructive pulmonary disease) Current Visit: Yes Status: Acute Assessment and Plan: Currently not in exacerbation We will give as needed breathing treatments DVT Prophylaxis: EPCDs - Time Spent with Patient Total time spent is greater than 50% in coordination of care (as documented) at patient's floor/unit and/or counseling patient: Internal Medicine: Result - Labs CBC & Chem 7: 11/21/18 05:28 11/21/18 05:28 Labs: Cardiac Enzymes 11/22/18 Range/Units 08:43 Troponin I 0.04 H* (< 0.04) ng/mL - ABG Interpretation ABG results: PT/INR, D-dimer PT 15.5 Seconds (9.4-12.1) H 11/21/18 05:28 - Impressions Impressions Abdomen MRI 11/21/18 11:38 IMPRESSION: Magnetic susceptibility artifact in the region of the duodenal ampulla likely from prior surgery. Recommend correlation with prior surgical history. No evidence of biliary or pancreatic ductal dilatation or obstruction. No choledocholithiasis. Possible focal adenomyomatosis of the wall of the gallbladder fundus. No acute abnormality of the gallbladder. 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 Hepatic steatosis. D/ / 11/21/2018 14:30:16 Anatoly Pollock MD / eric Interpreting Provider: Anatoly Pollock MD Echocardiogram 11/21/18 12:08 Impressions: LVEF 65%. Normal LV chamber size and function. Mild concentric left ventricular hypertrophy. Mild left ventricular diastolic dysfunction. Normal right ventricular structure and function. No evidence of pulmonary hypertension. No significant valvular dysfunction. Left Ventricular Wall Motion: Rest Echo Findings All wall segments showed normal motion. Findings: Study Quality * Technically sub-optimal due to poor echocardiographic windows. ECG Findings * Normal sinus rhythm. Left Ventricle * LVEF 65%. * Normal LV chamber size and function. * Mild concentric left ventricular hypertrophy. * Mild left ventricular diastolic dysfunction. Right Ventricle * Normal right ventricular structure and function. Left Atrium * Mildly dilated left atrium. Right Atrium * Normal right atrial size. Interatrial Septum * Interatrial septum not well evaluated. Aortic Valve * Trileaflet aortic valve with normal function. * No aortic stenosis. * Trace aortic regurgitation. Mitral Valve * Normal mitral valve structure and function. * No mitral stenosis. * No mitral regurgitation. Tricuspid Valve * Normal tricuspid valve structure and function. * Trace tricuspid regurgitation. * No evidence of pulmonary hypertension. Pulmonic Valve * Pulmonic valve is not well visualized. * Trace pulmonic regurgitation. Aorta * Normally sized aortic root. Pericardium * The pericardium appears normal. IVC * The IVC is not well evaluated. Pulmonary Artery * Pulmonary artery not well visualized. - VTE Reasons for not Prescribing Prophylaxis: Not indicated-Anticoagulated or INR therapeutic Consult Discharge Plan - Plan Referrals: [facility] [Outside] (6) Atrial fibrillation Qualifiers: Atrial fibrillation type: unspecified Qualified Code(s): I48.91 - Unspecified atrial fibrillation
[2018-11-22] MEDS: *HR* OxyCODONE/APAP 5/325 TABLET PO PRN ×2 (16:36→23:36)
[2018-11-22 18:41] LABS: Hepatitis B Surface Antigen Nonreactive (Nonreactive)
[2018-11-22 19:10] LABS: Hepatitis C Virus Antibody Nonreactive (Nonreactive)
[2018-11-22 19:11] LABS: Hepatitis B Core IgM Nonreactive (Nonreactive)
[2018-11-22 19:13] LABS: Hepatitis A Antibody IgM Nonreactive (Nonreactive)
[2018-11-23] MEDS: Ringers Solution, Lactated 1,000 ML IVC SCH ×2 (01:01→22:28)
[2018-11-23] MEDS: 0.9 % Sodium Chloride 1,000 ML IVC SCH ×3 (04:29→22:27)
[2018-11-23 06:56] LABS: Basophils % 0.5 %; Eosinophils # 0.2 K/mcL (0.0-0.6); Eosinophils % 4.6 %; Hematocrit 40.8 % (37.5-50.1); Immature Granulocytes % 0.5 % (0-4); Lymphocytes # 0.7 K/mcL (0.6-4.6); Lymphocytes % 15.7 %; Mean Corpuscular HGB Conc 32.6 g/dL (31.6-35.5); Mean Corpuscular Hemoglobin 26.9 pg (28.0-33.3); Mean Corpuscular Volume 82.6 fL (83.0-100.0); Mean Platelet Volume 10.6 fL (9.4-12.4); Monocytes # 0.6 K/mcL (0.0-1.3); Monocytes % 13.7 %; Neutrophils # 2.9 K/mcL (1.6-8.9); Platelet Count 148 K/mcL (140-400); Red Blood Count 4.94 M/mcL (4.19-5.50); Red Cell Distribution Width 15.2 % (11.5-14.5)
[2018-11-23 06:57] LABS: Hemoglobin 13.3 g/dL (12.9-16.9); White Blood Count 4.4 K/mcL (4.3-11.1)
[2018-11-23 07:14] LABS: Alanine Aminotransferase 131 Units/L (7-52); Albumin 3.5 g/dL (3.5-5.7); Albumin/Globulin Ratio 1.4 (1.1-2.2); Alkaline Phosphatase 123 Units/L (34-104); Aspartate Amino Transferase 57 Units/L (13-39); BUN/Creatinine Ratio 21 (6-26); Bilirubin,Total 1.3 mg/dL (0.3-1.0); Blood Urea Nitrogen 21 mg/dL (8-23); Calcium 8.3 mg/dL (8.6-10.3); Carbon Dioxide 26 mEq/L (23-29); Chloride 100 mEq/L (98-107); Globulin 2.5 g/dL (2.4-3.5); Glucose 282 mg/dL (70-105); Osmolality,Calculated 295 (280-300); Sodium 136 mEq/L (136-145); eGFR For African Americans > 60 (> 60); eGFR For Non-African Americans > 60 (> 60)
[2018-11-23] MEDS: Diltiazem CD (24hr) 180 MG CAPSULE PO SCH (08:52)
[2018-11-23] MEDS: Famotidine 20 MG TABLET PO SCH ×2 (08:52→16:53)
[2018-11-23] MEDS: levoFLOXacin 750 MG/150 ML 750 MG/150 ML BAG IVPB SCH (08:52)
[2018-11-23] MEDS: MetroNIDAZOLE 500 MG/100 ML 500 MG/100 ML BAG IVPB SCH ×2 (08:52→16:54)
[2018-11-23] MEDS: *HR* OxyCODONE/APAP 5/325 TABLET PO PRN ×2 (08:52→16:53)
[2018-11-23] MEDS: Insulin LISPRO 300 UNITS/3 ML VIAL SQ SCH ×4 (08:53→22:20)
[2018-11-23] MEDS: Insulin DETEMIR 100 UNIT/ML X5UNITS SQ SCH ×2 (08:54→22:20)
--- NOTE | 2018-11-23 10:45 | Internal Med Progress Note ---
Hospitalist Progress Note - Encounter Date of Encounter: 11/23/18 Time of Encounter: 08:00 - Subjective Interval History: 73-year-old man her for RUQ pain and elevated liver enzymes. Patient states that he continues to have colicky RUQ pain with associated nausea but no vomiting. He also denies fever and chills. - Exam Vitals: Temp Pulse Resp BP Pulse Ox 36.6 C 70 16 130/77 94 11/23/18 10:30 11/23/18 10:30 11/23/18 10:30 11/23/18 10:30 11/23/18 10:30 Exam: GENERAL: Obese patient. Not in distress. Alert and oriented x3 HEENT: EOMI, PERRLA MOUTH: Moist oral mucosa. NECK:No JVD, No lymph nodes. CHEST AND LUNGS: Normal breath sounds, no wheezes or crackles HEART: S1 and S2 normal, no murmurs ABDOMEN:Moderate RUQ tenderness. SKIN: Normal color, no rashes, no lesions EXTREMITIES: No deformity, no edema, no tenderness, no joint swelling or clubbing NEUROLOGICAL: Normal cognition, normal motor and sensory exam. - Assessment and Plan (1) RUQ abdominal pain Current Visit: Yes Status: Acute Assessment and Plan: Patient continues to report colicky RUQ pain Moderate tenderness on palpation of right upper quadrant. Patient had ERCP which was unsuccessful because probe could not get through the ampulla. MRCP showed hepatic steatosis without stones in the biliary tree or gallbladder. Possible adenomyomatosis of the wall of the gallbladder fundus. Ptosis measuring 3-5 mm in the body and tail of pancreas. HIDA scan yesterday showed no evidence of cholecysititis. Acute viral hepatitis panel negative Liver enzymes trending down. AST 57<169, ALT 131<342, ALP 123<182 and Bilirubin 1.3< 4.4 I spoke with Dye Beck Reel Operator who recommends consulting surgery to evaluate for possible cholecystectomy. (2) Hepatic steatosis Current Visit: Yes Status: Acute Assessment and Plan: Fatty liver observed was on MRI and right upper quadrant ultrasound. Patient's obesity may be a contributing factor to fatty liver Patient admits that he has been having mild chronic right upper quadrant pain. We will advise on losing at least 10% of his weight in 6 months. GI follow-up as outpatient We will monitor (3) Elevated troponin Current Visit: Yes Status: Acute Assessment and Plan: Patient had elevated troponins on admission 0.04, 0.04. Seen by Cardio Troponin elevation likely related to demand. Cardio has signed off. Will continue to monitor. (4) Abdominal aortic aneurysm (AAA) 3.0 cm to 5.5 cm in diameter in male Current Visit: Yes Status: Chronic Assessment and Plan: Patient has a known history of abdominal aortic aneurysm Ultrasoundon admission shows an infrarenal aortic aneurysm with a diameter of 3.1 cm Patient will need a follow-up ultrasound in 3 years. We will notify PCP for outpatient follow-up. (5) Obesity (BMI 30.0-34.9) Current Visit: Yes Status: Acute Assessment and Plan: Patient counseled on weight loss options. (6) Atrial fibrillation Current Visit: Yes Status: Chronic Assessment and Plan: On oral Cardizem Rate currently controlled Anticoagulation on hold in anticipation of surgery. (7) Hypertension Current Visit: Yes Status: Acute Assessment and Plan: Resume home meds BP currently controlled We will monitor (8) COPD (chronic obstructive pulmonary disease) Current Visit: Yes Status: Acute Assessment and Plan: Currently not in exacerbation We will give as needed breathing treatments DVT Prophylaxis: EPCDs. - Time Spent with Patient Total time spent is greater than 50% in coordination of care (as documented) at patient's floor/unit and/or counseling patient: Internal Medicine: Result - Labs CBC & Chem 7: 11/23/18 06:21 11/23/18 06:21 Labs: Short CBC 11/23/18 Range/Units 06:21 WBC 4.4 D (4.3-11.1) K/mcL Hgb 13.3 D (12.9-16.9) g/dL Hct 40.8 (37.5-50.1) % Plt Count 148 (140-400) K/mcL Neutrophils # 2.9 (1.6-8.9) K/mcL BMP 11/23/18 06:21 Sodium 136 Potassium 3.0 L Chloride 100 Carbon Dioxide 26 BUN 21 Creatinine 1.02 Glucose 282 H Calcium 8.3 L Cardiac Enzymes 11/22/18 Range/Units 16:02 Troponin I 0.04 H* (< 0.04) ng/mL Liver Function 11/23/18 Range/Units 06:21 Total Bilirubin 1.3 H (0.3-1.0) mg/dL AST 57 H (13-39) Units/L ALT 131 H (7-52) Units/L Alkaline Phosphatase 123 H (34-104) Units/L Albumin 3.5 (3.5-5.7) g/dL - ABG Interpretation ABG results: PT/INR, D-dimer PT 15.5 Seconds (9.4-12.1) H 11/21/18 05:28 - Impressions Impressions Bile Acid Absorption NM 11/22/18 10:28 IMPRESSION: 1. Common bile duct and cystic duct appear patent. No acute cholecystitis. D/ / Melecio Harris MD / Melecio Harris MD Interpreting Provider: Melecio Harris MD - VTE Reasons for not Prescribing Prophylaxis: Not indicated-Anticoagulated or INR therapeutic Consult Discharge Plan - Plan Referrals: [facility] [Outside] (6) Atrial fibrillation Qualifiers: Atrial fibrillation type: unspecified Qualified Code(s): I48.91 - Unspecified atrial fibrillation
--- NOTE | 2018-11-23 14:59 | Acute Care Surgery H&P ---
Date of Encounter: 11/23/18 Time of Encounter: 14:15 Assessment and Plan (1) Cholelithiasis with chronic cholecystitis with biliary obstruction Current Visit: Yes Status: Acute The assessment and plan as outlined above was discussed with the patient and/or family members who expressed understanding and agreement. All questions were answered. The patient likely had transient choledocholithiasis resulting in elevation of bilirubin, transaminases, alk phosphatase. The patient continues to have cholelithiasis and chronically inflamed gallbladder wall. I have recommended laparoscopic cholecystectomy. Cholangiogram should be performed if possible. Open common bile duct formal exploration would be necessary since ERCP is not an option for the patient. Qualifiers: Cholelithiasis location: gallbladder and bile duct Qualified Code(s): K80.65 - Calculus of gallbladder and bile duct with chronic cholecystitis with obstruction History of Present Illness Chief complaint: Upper abdominal pain, central HPI: Mr. Murrell is a 73 year old male Who was referred initially from the [facility] with midline upper abdominal pain. On presentation his transaminase levels were elevated. Alkaline phosphatase was elevated. Bilirubin was 5.7. Gastroenterology was consult and ERCP was attempted. The ERCP failed. There was an inability to technically identify the major papilla which rules out ERCP in the future. Acute care shana ratliff is consult for evaluation of management of cholelithiasis associated with suspected choledocholithiasis. His bilirubin has now dropped to 1.3 the transaminases have dropped and the alkaline phosphatase is dropped. He appears to have passed a common bile duct stone. The patient is chronically on Xarelto. This has been discontinued on Saturday. His chronic medical conditions are under reasonable control. It is reasonable to recommend laparoscopic cholecystectomy and cholangiogram. If ch oledocholithiasis is present, open formal common bile duct exploration will be indicated. Past Med Surg Social Fam HX - Past Medical History Medical history: aortic aneurysm, COPD, diabetes, hyperlipidemia, hypertension Psychiatric history: no psych history - Social History Smoking Status: Never smoker Smokeless Tobacco Status: No Alcohol use: none Drug use: none Medications and Allergies Atorvastatin Calcium [Lipitor] 80 mg PO HS 11/20/18 [History] Baclofen [Lioresal] 10 mg PO BID PRN 11/20/18 [History] Calcium Carbonate/Vitamin D3 [Calcium 500-Vit D3 200 Caplet] 1 tab PO BID 11/20/18 [History] Chlorthalidone 25 mg PO DAILY 11/20/18 [History] Cholecalciferol (D-3) [Vitamin D] 2,000 unit PO DAILY 11/20/18 [History] Diltiazem CD (24hr) [Cardizem CD] 180 mg PO DAILY 11/20/18 [History] Dulaglutide [Trulicity] 1.5 mg SQ TH 11/20/18 [History] Fluticasone Furoate [Arnuity Ellipta] 50 mcg IH DAILY PRN 11/20/18 [History] Insulin ASPART [NovoLOG] 18 unit SQ QAM 11/20/18 [History] Insulin ASPART [NovoLOG] 20 unit SQ QPM 11/20/18 [History] Insulin Glargine,Hum.rec.anlog [Basaglar Kwikpen U-100] 50 unit SQ BID 11/20/18 [History] Lisinopril [Zestril] 40 mg PO DAILY 11/20/18 [History] Metformin HCl [Glucophage] 1,000 mg PO BID 11/20/18 [History] Potassium Chloride [Klor-Con 10] 20 meq PO DAILY 11/20/18 [History] Ranitidine HCl [Acid Filling Hauler] 150 mg PO BID 11/20/18 [History] Rivaroxaban [Xarelto] 20 mg PO 1800 11/20/18 [History] Tramadol HCl [Ultram] 50 mg PO TID PRN 11/20/18 [History] Allergy/AdvReac Type Severity Reaction Status Date / Time nifedipine [From Procardia] AdvReac Headache Verified 11/20/18 23:58 Review of Systems All systems PM: The remainder of the systems were reviewed and are negative General Surgery Exam Initial Vital Signs Temp Pulse Resp BP Pulse Ox 99.8 F H 96 14 137/92 96 11/20/18 17:30 11/20/18 17:30 11/20/18 17:30 11/20/18 17:30 11/20/18 17:30 - General physical appearance well developed, well nourished, no distress, moderate pain - Respiratory normal expansion, normal respiratory effort, clear to auscultation - Cardiovascular Cardiovascular exam: Present: RRR, no murmurs/rubs/gallops - Abdomen Abdomen general surgery: Present: bowel sounds present, soft, tender Abdominal Tenderness: Present: epigastic (Tender to deep palpation in the epigastrium mild Greenberg sign.) - Integumentary Integumentary general surgery: Present: warm and dry, no abnormal pigmentation, other (No evidence of jaundice) - Neurologic Present: CN 2-12 grossly intact, normal coordination, normal sensation - Psychiatric Psychiatric general surgery: Present: appropriate, oriented to person, oriented to place, oriented to time, speech is normal, memory intact Results - Labs 11/23/18 06:21 11/23/18 06:21 Abnormal lab results RBC 5.83 M/mcL (4.19-5.50) H 11/21/18 05:28 MCV 82.6 fL (83.0-100.0) L 11/23/18 06:21 MCH 26.9 pg (28.0-33.3) L 11/23/18 06:21 RDW 15.2 % (11.5-14.5) H 11/23/18 06:21 Lymphocytes # 0.5 K/mcL (0.6-4.6) L 11/21/18 05:28 PT 15.5 Seconds (9.4-12.1) H 11/21/18 05:28 Potassium 3.0 mEq/L (3.5-5.1) L 11/23/18 06:21 Est GFR (Non-Af Amer) 59 (> 60) L 11/21/18 05:28 Glucose 282 mg/dL (70-105) H 11/23/18 06:21 POC Glucose 240 mg/dL (70-99) H 11/22/18 05:38 Hemoglobin A1c 8.1 % (-5.6) H 11/20/18 17:40 Calcium 8.3 mg/dL (8.6-10.3) L 11/23/18 06:21 Magnesium 1.5 mg/dL (1.6-2.6) L 11/21/18 05:28 Total Bilirubin 1.3 mg/dL (0.3-1.0) H 11/23/18 06:21 Direct Bilirubin 2.4 mg/dL (0.0-0.2) H 11/21/18 05:28 Indirect Bilirubin 2.0 mg/dL (0.0-1.2) H 11/21/18 05:28 GGT 457 Units/L (2-30) H 11/21/18 05:28 AST 57 Units/L (13-39) H 11/23/18 06:21 ALT 131 Units/L (7-52) H 11/23/18 06:21 Alkaline Phosphatase 123 Units/L (34-104) H 11/23/18 06:21 Troponin I 0.04 ng/mL (< 0.04) H* 11/22/18 16:02 Serum Total Protein 6.0 g/dL (6.4-8.9) L 11/23/18 06:21 Globulin 2.3 g/dL (2.4-3.5) L 11/20/18 18:42 Diabetes panel 11/23/18 Range/Units 06:21 Sodium 136 (136-145) mEq/L Potassium 3.0 L (3.5-5.1) mEq/L Chloride 100 (98-107) mEq/L Carbon Dioxide 26 (23-29) mEq/L BUN 21 (8-23) mg/dL Creatinine 1.02 (0.70-1.30) mg/dL Glucose 282 H (70-105) mg/dL Calcium 8.3 L (8.6-10.3) mg/dL AST 57 H (13-39) Units/L ALT 131 H (7-52) Units/L Alkaline Phosphatase 123 H (34-104) Units/L Albumin 3.5 (3.5-5.7) g/dL Calcium panel 11/23/18 Range/Units 06:21 Calcium 8.3 L (8.6-10.3) mg/dL Albumin 3.5 (3.5-5.7) g/dL Pituitary panel 11/23/18 Range/Units 06:21 Sodium 136 (136-145) mEq/L Potassium 3.0 L (3.5-5.1) mEq/L Chloride 100 (98-107) mEq/L Carbon Dioxide 26 (23-29) mEq/L BUN 21 (8-23) mg/dL Creatinine 1.02 (0.70-1.30) mg/dL Glucose 282 H (70-105) mg/dL Calcium 8.3 L (8.6-10.3) mg/dL Adrenal panel 11/23/18 Range/Units 06:21 Sodium 136 (136-145) mEq/L Potassium 3.0 L (3.5-5.1) mEq/L Chloride 100 (98-107) mEq/L Carbon Dioxide 26 (23-29) mEq/L BUN 21 (8-23) mg/dL Creatinine 1.02 (0.70-1.30) mg/dL Glucose 282 H (70-105) mg/dL Calcium 8.3 L (8.6-10.3) mg/dL Total Bilirubin 1.3 H (0.3-1.0) mg/dL AST 57 H (13-39) Units/L ALT 131 H (7-52) Units/L Alkaline Phosphatase 123 H (34-104) Units/L Albumin 3.5 (3.5-5.7) g/dL All other labs normal. - Imaging US - abdomen: image reviewed (I personally reviewed the ultrasound of the right upper quadrant. She does have cholelithiasis and thickened gallbladder wall. The hepatobiliary scan was consistent with patent bile ducts, however I really do not see the gallbladder visualized. Radiology reports no evidence of acute cholecystitis) - VTE Reasons for not Prescribing Prophylaxis: Not indicated-Anticoagulated or INR therapeutic
[2018-11-24] MEDS: MetroNIDAZOLE 500 MG/100 ML 500 MG/100 ML BAG IVPB SCH ×3 (00:25→17:08)
[2018-11-24] MEDS: *HR* OxyCODONE/APAP 5/325 TABLET PO PRN ×2 (00:26→21:31)
[2018-11-24 05:08] LABS: Basophils % 0.9 %; Eosinophils # 0.3 K/mcL (0.0-0.6); Eosinophils % 6.5 %; Hematocrit 42.2 % (37.5-50.1); Hemoglobin 13.9 g/dL (12.9-16.9); Immature Granulocytes % 0.2 % (0-4); Lymphocytes # 1.1 K/mcL (0.6-4.6); Lymphocytes % 23.6 %; Mean Corpuscular HGB Conc 32.9 g/dL (31.6-35.5); Mean Corpuscular Hemoglobin 27.4 pg (28.0-33.3); Mean Corpuscular Volume 83.2 fL (83.0-100.0); Mean Platelet Volume 10.4 fL (9.4-12.4); Monocytes # 0.6 K/mcL (0.0-1.3); Monocytes % 11.9 %; Neutrophils # 2.6 K/mcL (1.6-8.9); Platelet Count 153 K/mcL (140-400); Red Blood Count 5.07 M/mcL (4.19-5.50); Red Cell Distribution Width 15.3 % (11.5-14.5); Segmented Neutrophils % 56.9 %; White Blood Count 4.6 K/mcL (4.3-11.1)
[2018-11-24 05:20] LABS: Alanine Aminotransferase 168 Units/L (7-52); Albumin 3.5 g/dL (3.5-5.7); Albumin/Globulin Ratio 1.5 (1.1-2.2); Alkaline Phosphatase 190 Units/L (34-104); Aspartate Amino Transferase 120 Units/L (13-39); BUN/Creatinine Ratio 15 (6-26); Bilirubin,Total 1.1 mg/dL (0.3-1.0); Blood Urea Nitrogen 16 mg/dL (8-23); Calcium 8.4 mg/dL (8.6-10.3); Carbon Dioxide 27 mEq/L (23-29); Chloride 102 mEq/L (98-107); Globulin 2.4 g/dL (2.4-3.5); Glucose 295 mg/dL (70-105); Osmolality,Calculated 298 (280-300); Potassium 3.3 mEq/L (3.5-5.1); Sodium 138 mEq/L (136-145); Total Protein 5.9 g/dL (6.4-8.9); eGFR For African Americans > 60 (> 60); eGFR For Non-African Americans > 60 (> 60)
[2018-11-24] MEDS: Famotidine 20 MG TABLET PO SCH ×2 (10:15→17:09)
[2018-11-24] MEDS: Insulin LISPRO 300 UNITS/3 ML VIAL SQ SCH ×4 (10:15→22:06)
[2018-11-24] MEDS: 0.9 % Sodium Chloride 1,000 ML IVC SCH (10:16)
[2018-11-24] MEDS: Diltiazem CD (24hr) 180 MG CAPSULE PO SCH (10:16)
[2018-11-24] MEDS: Insulin DETEMIR 100 UNIT/ML X5UNITS SQ SCH ×2 (10:16→22:07)
--- NOTE | 2018-11-24 11:02 | Internal Med Progress Note ---
Hospitalist Progress Note - Encounter Date of Encounter: 11/24/18 Time of Encounter: 08:10 - Subjective Interval History: No acute events overnight. Patient denies vomiting but admits mild right upper quadrant pain and nausea. - Exam Vitals: Temp Pulse Resp BP Pulse Ox 36.7 C 69 16 144/89 95 11/24/18 07:35 11/24/18 07:35 11/24/18 07:35 11/24/18 07:35 11/24/18 07:35 Exam: GENERAL: Obese patient. Not in distress. Alert and oriented x3 HEENT: EOMI, PERRLA MOUTH: Moist oral mucosa. NECK:No JVD, No lymph nodes. CHEST AND LUNGS: Normal breath sounds, no wheezes or crackles HEART: S1 and S2 normal, no murmurs ABDOMEN:Mild RUQ tenderness. SKIN: Normal color, no rashes, no lesions EXTREMITIES: No deformity, no edema, no tenderness, no joint swelling or clubbing NEUROLOGICAL: Normal cognition, normal motor and sensory exam. - Assessment and Plan (1) Cholelithiasis with chronic cholecystitis with biliary obstruction Current Visit: Yes Status: Acute Assessment and Plan: Patient currently admits mild RUQ pain and nausea but no vomiting. Moderate tenderness on palpation of right upper quadrant. Patient had ERCP which was unsuccessful because probe could not get through the ampulla. MRCP showed hepatic steatosis without stones in the biliary tree or gallbladder. Possible adenomyomatosis of the wall of the gallbladder fundus. Ptosis measuring 3-5 mm in the body and tail of pancreas. HIDA scan showed no evidence of cholecysititis. Acute viral hepatitis panel negative Liver enzymes: AST 120>57, ALT 18>131, ALP 190>123 Patient has been seen by surgery and the recommendation is for laparoscopic cholecystectomy and cholangiogram tomorrow. Stress test has been ordered as part of periop eval per cardiology recommendation. (2) RUQ abdominal pain Current Visit: Yes Status: Acute Assessment and Plan: As above (3) Hepatic steatosis Current Visit: Yes Status: Acute Assessment and Plan: Fatty liver observed was on MRI and right upper quadrant ultrasound. Patient's obesity may be a contributing factor to fatty liver Patient admits that he has been having mild chronic right upper quadrant pain. We will advise on losing at least 10% of his weight in 6 months. GI follow-up as outpatient We will monitor (4) Elevated troponin Current Visit: Yes Status: Acute Assessment and Plan: Patient had elevated troponins on admission 0.04, 0.04. Seen by Cardio Troponin elevation likely related to demand. Stress test today for periop eval. (5) Abdominal aortic aneurysm (AAA) 3.0 cm to 5.5 cm in diameter in male Current Visit: Yes Status: Chronic Assessment and Plan: Patient has a known history of abdominal aortic aneurysm Ultrasoundon admission shows an infrarenal aortic aneurysm with a diameter of 3.1 cm Patient will need a follow-up ultrasound in 3 years. We will notify PCP for outpatient follow-up. (6) Obesity (BMI 30.0-34.9) Current Visit: Yes Status: Acute Assessment and Plan: Patient counseled on weight loss options. (7) Atrial fibrillation Current Visit: Yes Status: Chronic Assessment and Plan: On oral Cardizem Rate currently controlled Anticoagulation on hold in anticipation of surgery. (8) Hypertension Current Visit: Yes Status: Acute Assessment and Plan: Resume home meds BP currently controlled We will monitor (9) COPD (chronic obstructive pulmonary disease) Current Visit: Yes Status: Acute Assessment and Plan: Currently not in exacerbation We will give as needed breathing treatments DVT Prophylaxis: EPCDs - Time Spent with Patient Total time spent is greater than 50% in coordination of care (as documented) at patient's floor/unit and/or counseling patient: Internal Medicine: Result - Labs CBC & Chem 7: 11/24/18 04:33 11/24/18 04:33 Labs: Short CBC 11/24/18 Range/Units 04:33 WBC 4.6 (4.3-11.1) K/mcL Hgb 13.9 (12.9-16.9) g/dL Hct 42.2 (37.5-50.1) % Plt Count 153 (140-400) K/mcL Neutrophils # 2.6 (1.6-8.9) K/mcL BMP 11/24/18 04:33 Sodium 138 Potassium 3.3 L Chloride 102 Carbon Dioxide 27 BUN 16 Creatinine 1.05 Glucose 295 H Calcium 8.4 L Liver Function 11/24/18 Range/Units 04:33 Total Bilirubin 1.1 H (0.3-1.0) mg/dL AST 120 H (13-39) Units/L ALT 168 H (7-52) Units/L Alkaline Phosphatase 190 H (34-104) Units/L Albumin 3.5 (3.5-5.7) g/dL - ABG Interpretation ABG results: PT/INR, D-dimer PT 15.5 Seconds (9.4-12.1) H 11/21/18 05:28 - VTE Reasons for not Prescribing Prophylaxis: Not indicated-Anticoagulated or INR therapeutic Consult Discharge Plan - Plan Referrals: [facility] [Outside] (1) Cholelithiasis with chronic cholecystitis with biliary obstruction Qualifiers: Cholelithiasis location: gallbladder and bile duct Qualified Code(s): K80.65 - Calculus of gallbladder and bile duct with chronic cholecystitis with obstruction (7) Atrial fibrillation Qualifiers: Atrial fibrillation type: unspecified Qualified Code(s): I48.91 - Unspecified atrial fibrillation
[2018-11-24] MEDS: levoFLOXacin 750 MG/150 ML 750 MG/150 ML BAG IVPB SCH (11:51)
--- NOTE | 2018-11-24 11:54 | AcuteCareSurgery Progress Note ---
Date of Encounter: 11/24/18 Time of Encounter: 07:00 - Assessment and Plan (1) Cholelithiasis with chronic cholecystitis with biliary obstruction Current Visit: Yes Status: Acute Obstruction may be resolving. Pt underwent ERCP with failure to cannulate CBD. T bili is normalized and suspect CBD has passed or has become ballotable and is no longer obstructing. Pt will undergo Lap germaine with IOC. However, d/t elevated troponin, pt must undergo cardiac stress test before surgery. Stress is scheduled for tomorrow early am d/t consumption of coffee this am. If IOC is positive then, open CBD exploration will be completed. Pt understands and agrees with plan. Surgery is tentatively planned for tomorrow after stress. Qualifiers: Cholelithiasis location: gallbladder and bile duct Qualified Code(s): K80.65 - Calculus of gallbladder and bile duct with chronic cholecystitis with obstruction (2) Hyperbilirubinemia Current Visit: Yes Status: Acute T bili normalized. See above. (3) Transaminitis Current Visit: Yes Status: Acute Continue IV abx. (4) Elevated troponin Current Visit: Yes Status: Acute Cardiac stress recommended and scheduled for am. (5) Atrial fibrillation Current Visit: Yes Status: Chronic Hold xarelto. Qualifiers: Atrial fibrillation type: unspecified Qualified Code(s): I48.91 - Unspecified atrial fibrillation (6) Hypertension Current Visit: Yes Status: Acute Qualifiers: Hypertension type: essential hypertension Qualified Code(s): I10 - Essential (primary) hypertension (7) COPD (chronic obstructive pulmonary disease) Current Visit: Yes Status: Acute Qualifiers: Qualified Code(s): J44.9 - Chronic obstructive pulmonary disease, unspecified Subjective Patient reports: no new complaints, feels better, still having pain, pain is less, tolerating a regular diet, flatus, afebrile Objective Vital Signs - Last 8 Hours Temp Pulse Resp BP Pulse Ox 11/24/18 07:35 98.0 F 69 16 144/89 95 11/24/18 05:07 98.4 F 69 18 154/87 95 Intake and Output 11/23/18 11/24/18 11/24/18 23:59 07:59 15:59 Intake Total 1340 / 3290 100 / 1100 1000 / 1100 Output Total 350 / 850 Balance 990 / 2440 100 / 1100 1000 / 1100 Intake: IV Fluids 1100 / 2450 100 / 1100 1000 / 1100 0.9 % Sodium Chloride 1,000 ML 1000 / 2000 1000 / 1000 @ 75 mls/hr IVC .[id number] [facility] Rx #:[id number] Flagyl Premix 500 MG/100 ML 500 100 / 300 100 / 100 mg In 100 ml @ 100 mls/hr IVPB Q8HR [facility] Rx#:[id number] Oral 240 / 840 0 / 0 Output: Urine 350 / 850 Other: Meal Dinner Percent of Meal Consumed 100% # Voids 2 Blood Glucose* 362 234 - General physical appearance well nourished, no distress, moderate pain (improving) - Eyes PERRL, normal ocular movement - ENT no congestion, dry mucosa - Neck Neck exam: trachea midline, no venous distension - Respiratory normal respiratory effort, clear to auscultation - Cardiovascular Cardiovascular exam: Present: RRR. Absent: JVD - Abdomen Abdomen: Present: bowel sounds present, soft, tender Abdominal Tenderness: epigastic, RUQ - Genitourinary normal penis with no external lesions - Integumentary no rash - Neurologic CN 2-12 grossly intact, normal coordination - Musculoskeletal normal posture - Psychiatric oriented to time, oriented to person, oriented to place - Labs 11/24/18 04:33 11/24/18 04:33 Diabetes panel 11/24/18 Range/Units 04:33 Sodium 138 (136-145) mEq/L Potassium 3.3 L (3.5-5.1) mEq/L Chloride 102 (98-107) mEq/L Carbon Dioxide 27 (23-29) mEq/L BUN 16 (8-23) mg/dL Creatinine 1.05 (0.70-1.30) mg/dL Glucose 295 H (70-105) mg/dL Calcium 8.4 L (8.6-10.3) mg/dL AST 120 H (13-39) Units/L ALT 168 H (7-52) Units/L Alkaline Phosphatase 190 H (34-104) Units/L Albumin 3.5 (3.5-5.7) g/dL Calcium panel 11/24/18 Range/Units 04:33 Calcium 8.4 L (8.6-10.3) mg/dL Albumin 3.5 (3.5-5.7) g/dL Pituitary panel 11/24/18 Range/Units 04:33 Sodium 138 (136-145) mEq/L Potassium 3.3 L (3.5-5.1) mEq/L Chloride 102 (98-107) mEq/L Carbon Dioxide 27 (23-29) mEq/L BUN 16 (8-23) mg/dL Creatinine 1.05 (0.70-1.30) mg/dL Glucose 295 H (70-105) mg/dL Calcium 8.4 L (8.6-10.3) mg/dL Adrenal panel 11/24/18 Range/Units 04:33 Sodium 138 (136-145) mEq/L Potassium 3.3 L (3.5-5.1) mEq/L Chloride 102 (98-107) mEq/L Carbon Dioxide 27 (23-29) mEq/L BUN 16 (8-23) mg/dL Creatinine 1.05 (0.70-1.30) mg/dL Glucose 295 H (70-105) mg/dL Calcium 8.4 L (8.6-10.3) mg/dL Total Bilirubin 1.1 H (0.3-1.0) mg/dL AST 120 H (13-39) Units/L ALT 168 H (7-52) Units/L Alkaline Phosphatase 190 H (34-104) Units/L Albumin 3.5 (3.5-5.7) g/dL - VTE Reasons for not Prescribing Prophylaxis: Not indicated-Anticoagulated or INR th erapeutic Consult Discharge Plan - Plan Referrals: [facility] [Outside]
--- NOTE | 2018-11-24 18:47 | Anesthesia Evaluation PreOp ---
Date of Encounter: 11/24/18 Time of Encounter: 18:52 - Past History Planned Operation: LAP CHOLECYSTECTOMY Cardiac History: HTN, Hyperlipidemia, Arrhythmia (AFIB, CHRONIC XARELTO ANTICOAGULATION), Other (AAA - STABLE FOLLOWED, CAD - NORMAL EF,) Pulmonary History: COPD (HOME O2 HS) Other Medical History: Diabetes Type II, Other (OBESITY) Anesthesia History: No Prior Anesthetic Complications, Past Anesthesia Alcohol Use: none Drug use: none Medications and Allergies Atorvastatin Calcium [Lipitor] 80 mg PO HS 11/20/18 [History] Baclofen [Lioresal] 10 mg PO BID PRN 11/20/18 [History] Calcium Carbonate/Vitamin D3 [Calcium 500-Vit D3 200 Caplet] 1 tab PO BID 11/20/18 [History] Chlorthalidone 25 mg PO DAILY 11/20/18 [History] Cholecalciferol (D-3) [Vitamin D] 2,000 unit PO DAILY 11/20/18 [History] Diltiazem CD (24hr) [Cardizem CD] 180 mg PO DAILY 11/20/18 [History] Dulaglutide [Trulicity] 1.5 mg SQ TH 11/20/18 [History] Fluticasone Furoate [Arnuity Ellipta] 50 mcg IH DAILY PRN 11/20/18 [History] Insulin ASPART [NovoLOG] 18 unit SQ QAM 11/20/18 [History] Insulin ASPART [NovoLOG] 20 unit SQ QPM 11/20/18 [History] Insulin Glargine,Hum.rec.anlog [Basaglar Kwikpen U-100] 50 unit SQ BID 11/20/18 [History] Lisinopril [Zestril] 40 mg PO DAILY 11/20/18 [History] Metformin HCl [Glucophage] 1,000 mg PO BID 11/20/18 [History] Potassium Chloride [Klor-Con 10] 20 meq PO DAILY 11/20/18 [History] Ranitidine HCl [Acid Technology Resource Teacher] 150 mg PO BID 11/20/18 [History] Rivaroxaban [Xarelto] 20 mg PO 1800 11/20/18 [History] Tramadol HCl [Ultram] 50 mg PO TID PRN 11/20/18 [History] Allergy/AdvReac Type Severity Reaction Status Date / Time nifedipine [From Procardia] AdvReac Headache Verified 11/20/18 23:58 - Meds/Allergy Pre-op Review Medications Reviewed: Yes Allergies Reviewed: Yes Anesthesia Results - Labs 11/24/18 04:33 11/24/18 04:33 - Imaging EKG: report reviewed (Atrial premature complexes Prolonged TX interval Abnormal R-wave progression, late transition Borderline T wave abnormalities) Anesthesia Exam Vital Signs/O2 Sat/Glucose, Most Recent Temp Pulse Resp BP Pulse Ox 98.4 F 79 15 154/69 97 11/24/18 16:09 11/24/18 16:09 11/24/18 16:09 11/24/18 16:09 11/24/18 16:09 Blood Glucose* 298 Weight: 102 KG - BMI 31 Anes Supervising Prov Stmt: PATIENT NEEDS A STRESS TEST PRIOR TO SURGERY PATIENT IS SCHEDULED FOR A STRESS TEST 9/10 AM.
[2018-11-25] MEDS: MetroNIDAZOLE 500 MG/100 ML 500 MG/100 ML BAG IVPB SCH ×4 (00:31→23:26)
[2018-11-25] MEDS: Insulin LISPRO 300 UNITS/3 ML VIAL SQ SCH ×5 (01:07→23:26)
[2018-11-25] MEDS: 0.9 % Sodium Chloride 1,000 ML IVC SCH (03:50)
[2018-11-25] MEDS ORDERED: cefOXitin 1,000 MG, 0.9 % Sodium Chloride 1,000 ML IR ONE ×2 (06:00→20:42)
[2018-11-25 06:13] LABS: Basophils % 0.3 %; Eosinophils # 0.3 K/mcL (0.0-0.6); Hematocrit 45.1 % (37.5-50.1); Hemoglobin 14.9 g/dL (12.9-16.9); Immature Granulocytes % 0.3 % (0-4); Lymphocytes # 1.5 K/mcL (0.6-4.6); Lymphocytes % 23.5 %; Mean Corpuscular Hemoglobin 27.4 pg (28.0-33.3); Mean Corpuscular Volume 82.9 fL (83.0-100.0); Mean Platelet Volume 10.8 fL (9.4-12.4); Monocytes # 0.5 K/mcL (0.0-1.3); Monocytes % 7.5 %; Neutrophils # 3.9 K/mcL (1.6-8.9); Platelet Count 190 K/mcL (140-400); Red Blood Count 5.44 M/mcL (4.19-5.50); Red Cell Distribution Width 15.1 % (11.5-14.5); Segmented Neutrophils % 63.4 %; White Blood Count 6.2 K/mcL (4.3-11.1)
[2018-11-25 06:27] LABS: Alanine Aminotransferase 161 Units/L (7-52); Albumin 3.9 g/dL (3.5-5.7); Albumin/Globulin Ratio 1.7 (1.1-2.2); Alkaline Phosphatase 223 Units/L (34-104); Aspartate Amino Transferase 107 Units/L (13-39); BUN/Creatinine Ratio 18 (6-26); Blood Urea Nitrogen 18 mg/dL (8-23); Calcium 9.1 mg/dL (8.6-10.3); Carbon Dioxide 26 mEq/L (23-29); Chloride 104 mEq/L (98-107); Globulin 2.3 g/dL (2.4-3.5); Glucose 335 mg/dL (70-105); Osmolality,Calculated 303 (280-300); Potassium 3.6 mEq/L (3.5-5.1); Sodium 139 mEq/L (136-145); Total Protein 6.2 g/dL (6.4-8.9); eGFR For African Americans > 60 (> 60); eGFR For Non-African Americans > 60 (> 60)
[2018-11-25] MEDS ORDERED: Regadenoson 0.4 MG/5 ML SYRINGE IVP ONE (06:40)
[2018-11-25] MEDS: Diltiazem CD (24hr) 180 MG CAPSULE PO SCH (09:29)
[2018-11-25] MEDS: Famotidine 20 MG TABLET PO SCH ×2 (09:30→15:43)
[2018-11-25] MEDS: levoFLOXacin 750 MG/150 ML 750 MG/150 ML BAG IVPB SCH (11:00)
[2018-11-25] MEDS: Insulin DETEMIR 100 UNIT/ML X5UNITS SQ SCH ×2 (11:05→21:17)
--- NOTE | 2018-11-25 12:06 | Internal Med Progress Note ---
Hospitalist Progress Note - Encounter Date of Encounter: 11/25/18 Time of Encounter: 12:03 - Subjective Interval History: Patient had a stress test this morning. He is currently not acute distress. He denies abdominal pain, fever, chills, chest pain, shortness of breath and palpitations. - Exam Vitals: Temp Pulse Resp BP Pulse Ox 36.6 C 81 16 155/102 93 11/25/18 11:38 11/25/18 11:38 11/25/18 11:38 11/25/18 11:38 11/25/18 11:38 Exam: GENERAL: Obese patient. Not in distress. Alert and oriented x3 HEENT: EOMI, PERRLA MOUTH: Moist oral mucosa. NECK:No JVD, No lymph nodes. CHEST AND LUNGS: Normal breath sounds, no wheezes or crackles HEART: S1 and S2 normal, no murmurs ABDOMEN:Mild RUQ tenderness. SKIN: Normal color, no rashes, no lesions EXTREMITIES: No deformity, no edema, no tenderness, no joint swelling or clubbing NEUROLOGICAL: Normal cognition, normal motor and sensory exam. - Assessment and Plan (1) Cholelithiasis with chronic cholecystitis with biliary obstruction Current Visit: Yes Assessment and Plan: Patient is scheduled for cholecystectomy today. He had a stress test this morning which showed no ischemia or infarct. LVEF 67%. (2) RUQ abdominal pain Current Visit: Yes Status: Acute Assessment and Plan: As above (3) Hepatic steatosis Current Visit: Yes Status: Acute Assessment and Plan: Fatty liver observed was on MRI and right upper quadrant ultrasound. Patient's obesity may be a contributing factor to fatty liver Patient admits that he has been having mild chronic right upper quadrant pain. We will advise on losing at least 10% of his weight in 6 months. GI follow-up as outpatient We will monitor (4) Elevated troponin Current Visit: Yes Status: Acute Assessment and Plan: Patient had elevated troponins on admission 0.04, 0.04. Seen by Cardio Troponin elevation likely related to demand. Stress test negative for ischemia or infarct. (5) Abdominal aortic aneurysm (AAA) 3.0 cm to 5.5 cm in diameter in male Current Visit: Yes Status: Chronic Assessment and Plan: Patient has a known history of abdominal aortic aneurysm Ultrasoundon admission shows an infrarenal aortic aneurysm with a diameter of 3.1 cm Patient will need a follow-up ultrasound in 3 years. We will notify PCP for outpatient follow-up. (6) Obesity (BMI 30.0-34.9) Current Visit: Yes Status: Acute Assessment and Plan: Patient counseled on weight loss options. (7) Atrial fibrillation Current Visit: Yes Status: Chronic Assessment and Plan: On oral Cardizem Rate currently controlled Anticoagulation on hold in anticipation of surgery. (8) Hypertension Current Visit: Yes Status: Acute Assessment and Plan: Resume home meds BP currently controlled We will monitor (9) COPD (chronic obstructive pulmonary disease) Current Visit: Yes Status: Acute Assessment and Plan: Currently not in exacerbation We will give as needed breathing treatments DVT Prophylaxis: EPCDs - Time Spent with Patient Total time spent is greater than 50% in coordination of care (as documented) at patient's floor/unit and/or counseling patient: Internal Medicine: Result - Labs CBC & Chem 7: 11/25/18 05:05 11/25/18 05:05 Labs: Short CBC 11/25/18 Range/Units 05:05 WBC 6.2 (4.3-11.1) K/mcL Hgb 14.9 (12.9-16.9) g/dL Hct 45.1 (37.5-50.1) % Plt Count 190 (140-400) K/mcL Neutrophils # 3.9 (1.6-8.9) K/mcL BMP 11/25/18 05:05 Sodium 139 Potassium 3.6 Chloride 104 Carbon Dioxide 26 BUN 18 Creatinine 1.02 Glucose 335 H Calcium 9.1 Liver Function 11/25/18 Range/Units 05:05 Total Bilirubin 1.0 (0.3-1.0) mg/dL AST 107 H (13-39) Units/L ALT 161 H (7-52) Units/L Alkaline Phosphatase 223 H (34-104) Units/L Albumin 3.9 (3.5-5.7) g/dL - ABG Interpretation ABG results: PT/INR, D-dimer PT 15.5 Seconds (9.4-12.1) H 11/21/18 05:28 - VTE Reasons for not Prescribing Prophylaxis: Not indicated-Anticoagulated or INR therapeutic Consult Discharge Plan - Plan Referrals: [facility] [Outside] (1) Cholelithiasis with chronic cholecystitis with biliary obstruction Qualifiers: Cholelithiasis location: gallbladder and bile duct Qualified Code(s): K80.65 - Calculus of gallbladder and bile duct with chronic cholecystitis with obstruction (7) Atrial fibrillation Qualifiers: Atrial fibrillation type: unspecified Qualified Code(s): I48.91 - Unspecified atrial fibrillation (8) Hypertension Qualifiers: Hypertension type: essential hypertension Qualified Code(s): I10 - Essential (primary) hypertension (9) COPD (chronic obstructive pulmonary disease) Qualifiers: Qualified Code(s): J44.9 - Chronic obstructive pulmonary disease, unspecified
[2018-11-25] MEDS ORDERED: *HR* Propofol 200 MG/20 ML VIAL IVP ONE ×2 (14:53→17:45)
[2018-11-25] MEDS ORDERED: *HR* Rocuronium Bromide 50 MG/5 ML VIAL ONE ×2 (14:53→17:52)
[2018-11-25] MEDS ORDERED: Insulin DETEMIR 100 UNIT/ML X5UNITS SQ ONE (14:57)
[2018-11-25] MEDS ORDERED: Isovue-300 50 ML VIAL ONE (15:39)
[2018-11-25] MEDS ORDERED: CefOXitin 1,000 MG VIAL ONE (15:39)
[2018-11-25] MEDS: *HR* OxyCODONE/APAP 5/325 TABLET PO PRN (15:55)
[2018-11-25] MEDS ORDERED: Ketorolac 30 MG/ML VIAL IVP ONE ×2 (17:39→20:42)
[2018-11-25] MEDS ORDERED: *HR* OxyCODONE Immed Rel 5 MG TABLET PO PRN ×2 (17:39→20:42)
[2018-11-25] MEDS ORDERED: Acetaminophen IV 1,000 MG/100 ML INFUS..BTL IVPB ONE ×2 (17:39→20:42)
[2018-11-25] MEDS ORDERED: *HR* Labetalol 20 MG/4 ML SYRINGE IVP PRN ×2 (17:39→20:42)
[2018-11-25] MEDS ORDERED: *HR* Promethazine 25 MG/ML VIAL IVP PRN ×2 (17:39→20:42)
[2018-11-25] MEDS ORDERED: Albuterol 2.5 MG/3 ML NEBULIZER IH ONE ×2 (17:39→20:42)
[2018-11-25] MEDS ORDERED: Ondansetron 4 MG/2 ML VIAL IVP ONE ×2 (17:39→20:42)
[2018-11-25] MEDS ORDERED: *HR* Meperidine 25 MG/ML SYRINGE IVP PRN ×2 (17:39→20:42)
[2018-11-25] MEDS ORDERED: *HR* HYDROmorphone (PF) 1 MG/ML SYRINGE IVP PRN ×2 (17:39→20:42)
[2018-11-25] MEDS ORDERED: *HR* FentaNYL (PF) 100 MCG/2 ML VIAL ONE (17:45)
[2018-11-25] MEDS ORDERED: Lidocaine -MPF 2% 2 ML VIAL ONE (17:52)
[2018-11-25] MEDS ORDERED: *HR* Succinylcholine 200 MG/10 ML VIAL IVP ONE (17:52)
[2018-11-25] MEDS ORDERED: Dexamethasone 4 MG/ML VIAL ONE (17:52)
[2018-11-25] MEDS ORDERED: Lidocaine -MPF 4% 5 ML AMPUL ONE (18:37)
[2018-11-25] MEDS ORDERED: CefOXitin 2,000 MG VIAL ONE (18:42)
[2018-11-25] MEDS ORDERED: *HR* HYDROMORPHONE 2 MG/ML VIAL ONE (19:12)
--- NOTE | 2018-11-25 19:40 | Operative Note ---
Date of procedure: 11/25/18 Pre-op diagnosis: Cholelithiasis and history of choledocholithiasis Post-op diagnosis: other (Cholelithiasis and chronic cholecystitis. No evidence of choledocholithiasis.) Procedure: Laparoscopic cholecystectomy, cholangiogram Anesthesia: GETA Surgeon: Loco Brumfield Was there an personal assistant present: Yes Mercury Purifier: Candice Cespedes Estimated blood loss (cc): 10 Specimen: Gallbladder and contents Condition: stable Disposition: PACU Procedure in Detail: Laparoscopic cholecystectomy and intraoperative cholangiogram Operative procedure: after informed consent and appropriate patient identification, the patient was taken to the major operating suite and placed supine position and given adequate general endotracheal anesthesia. The abdomen was prepped and draped in sterile fashion utilizing ChloraPrep standard draping techniques. Timeout was taken and the patient was identified. I made a vertical midline incision below the umbilicus and dissected down to level of fascia. I placed 2 traction stitches of 0 vicryl in the midline fascia and the abdominal cavity was entered visually. A Farrell trocar was placed in the abdomen and the abdomen was insufflated to 15 mmHg pressure CO2. The gallbladder was visualized. I placemed an 11 port in the subxiphoid area and two 5 mm ports in the subcostal area. The gallbladder was grasped and elevated. A variety of blunt and sharp dissection techniques were used to isolate the cystic duct and cystic artery. The cystic artery was controlled with 2 surgical clips proximally and one distally and it was divided. I placed a surgical clip on the neck the gallbladder and obtained an intraoperative cholangiogram using 10 mL of Isovue. Intraoperative cholangiogram demonstrated abnormal distal common bile duct anatomy with the cystic duct entering the right side of the duo denum area the duodenum was midline. There was no evidence of choledocholithiasis. There was free flow into the duodenum.. The cholangiocatheter was removed and the cystic duct was controlled with 2 surgical clips proximally and was divided. The gallbladder was removed from the gallbladder fossae using electrocautery. The gallbladder was removed from the abdomen through the #11 port site. I replaced the #11 port and irrigated with copious amounts of antibiotic containing solution. There was no evidence of bleeding or bile leak. All trochars were removed. Fascia was closed with 0 Vicryl and the skin with 2-0 and 4-0 Vicryl. He tolerated the procedure well and was transferred to recovery in stable condition
[2018-11-25] MEDS ORDERED: *HR* Dextrose 50 % in Water (Syg) 50 ML SYRINGE IVP PRN (20:42)
[2018-11-25] MEDS ORDERED: Acetaminophen 325 MG RECTAL SUPP RC PRN (20:42)
[2018-11-25] MEDS ORDERED: Naloxone 0.4 MG/ML INJ IVP PRN (20:42)
[2018-11-25] MEDS ORDERED: Ondansetron ODT 4 MG TAB.RAPDIS SL PRN (20:42)
[2018-11-25] MEDS ORDERED: Dextrose Gel 15 GM/37.5 ML TUBE PO PRN ×2 (20:42)
[2018-11-25] MEDS ORDERED: *HR* OxyCODONE/APAP 5/325 TABLET PO PRN (20:42)
[2018-11-25] MEDS ORDERED: D5% in Water 1,000 ML IVC PRN (20:42)
--- NOTE | 2018-11-26 00:25 | Anesthesia Evaluation Post Op ---
Date of Encounter: 11/26/18 Time of Encounter: 20:30 - Discharge PostOp Status: Transfer Patient to floor (Patient's vital signs have been reviewed. Patient is stable postoperatively and has adequately recovered from anesthesia. Patient is determined to have stable airway patency and respiratory function including respiratory rate and oxygen saturation. Patient has a stable heart rate, blood pressure and adequate hydration. Patients mental status is acceptable. Patients temperature is appropriate. Pain and nausea are adequately controlled)
--- NOTE | 2018-11-26 08:33 | AcuteCareSurgery Progress Note ---
Date of Encounter: 11/26/18 Time of Encounter: 08:32 - Assessment and Plan (1) Hyperbilirubinemia Current Visit: Yes Status: Acute s/p Lap CCY with cholangiogram. Patient okay to be discharged home from surgical perspective. We will make certain the patient has a follow-up in 2 weeks. Subjective Patient reports: other (No complaints. Tolerating by mouth diet.) Objective Vital Signs - Last 8 Hours Temp Pulse Resp BP Pulse Ox 11/26/18 07:10 97.7 F 86 15 151/90 96 11/26/18 03:46 97.9 F 84 16 154/80 96 Intake and Output 11/25/18 11/26/18 11/26/18 23:59 07:59 15:59 Intake Total 100 / 100 Output Total 310 / 310 850 / 850 Balance -310 / 1040 -750 / -750 Intake: IV Fluids 100 / 100 Flagyl Premix 500 MG/100 ML 500 100 / 100 mg In 100 ml @ 100 mls/hr IVPB Q8HR [facility] Rx#:[id number] Output: Urine 300 / 300 850 / 850 Estimated Blood Loss Other: Weight 101.3 kg Blood Glucose* 287 248 Patient Weight 11/26/18 23:59 Weight 101.3 kg - General physical appearance well nourished, no distress - Abdomen Abdomen: Present: bowel sounds present, soft - Labs 11/25/18 05:05 11/25/18 05:05 - VTE Reasons for not Prescribing Prophylaxis: Not indicated-Anticoagulated or INR therapeutic Consult Discharge Plan - Plan Referrals: [facility] [Outside]
[2018-11-26] MEDS ORDERED: levoFLOXacin 750 MG/150 ML 750 MG/150 ML BAG IVPB SCH (09:00)
[2018-11-26] MEDS ORDERED: Diltiazem CD (24hr) 180 MG CAPSULE PO SCH (09:00)
[2018-11-26] MEDS: 0.9 % Sodium Chloride 1,000 ML IVC SCH ×3 (09:05→17:09)
[2018-11-26] MEDS: Insulin LISPRO 300 UNITS/3 ML VIAL SQ SCH ×4 (09:06→17:11)
[2018-11-26] MEDS: MetroNIDAZOLE 500 MG/100 ML 500 MG/100 ML BAG IVPB SCH ×2 (09:07→17:11)
[2018-11-26] MEDS: Insulin DETEMIR 100 UNIT/ML X5UNITS SQ SCH (09:07)
[2018-11-26] MEDS: Famotidine 20 MG TABLET PO SCH ×2 (09:07→17:11)
--- NOTE | 2018-11-26 12:03 | Discharge Summary ---
Date of Encounter: 11/26/18 Time of Encounter: 10:00 - Discharge Diagnosis (1) Cholelithiasis with chronic cholecystitis with biliary obstruction Priority: Primary Assessment and Plan: 73 year old male with past medical history of hypertension, type 2 diabetes, atrial fibrillation on xeralto, severe CAD status post stenting, COPD not oxygen dependent presented to the ED for acute on chronic abdominal pain. Face to face encounter occurred at 8:30pm. Patient stated that he has been having abdominal pain for around a year that is mostly left side positional sharp exacerbated laying in the left side improves with rest and laying in a different position. Patient however yesterday while going to a pickup truck. Noticed the pain progressed to become sharp umbilical 10/10 related that did not alleviate with movement and exacerbated associated with nausea, fever, no change in bowel, dysuria, chest pain or shortness of breath. He was assessed with abdominal pain secondary to cholecystitis and possible choledocholithiasis. Patient had ERCP which was unsuccessful because probe could not get through the ampulla.MRCP showed hepatic steatosis without stones in the biliary tree or gallbladder. Patient likely had transient choledocholithiasis with elevated transaminases which have trended down. He was seen by general surgery and had a laparoscopic cholecystectomy and intraoperative cholangiogram performed. Cholangiogram showed no evidence of choledocholithiasis. He tolerated cholecystectomy with no acute complications. He was discharged in a stable condition. 35 minutes was spent discharging this patient Qualifiers: Cholelithiasis location: gallbladder and bile duct Qualified Code(s): K80.65 - Calculus of gallbladder and bile duct with chronic cholecystitis with obstruction (2) RUQ abdominal pain Priority: Primary Status: Acute Assessment and Plan: As above (3) Elevated troponin Priority: Primary Status: Acute (4) Abdominal aortic aneurysm (AAA) 3.0 cm to 5.5 cm in diameter in male Priority: Primary Status: Chronic (5) Hepatic steatosis Priority: Primary Status: Acute (6) Obesity (BMI 30.0-34.9) Priority: Primary Status: Acute (7) Atrial fibrillation Priority: Primary Status: Chronic Qualifiers: Atrial fibrillation type: unspecified Qualified Code(s): I48.91 - Unspecified atrial fibrillation (8) Hypertension Priority: Primary Status: Acute Qualifiers: Hypertension type: essential hypertension Qualified Code(s): I10 - Essential (primary) hypertension (9) COPD (chronic obstructive pulmonary disease) Priority: Primary Status: Acute Qualifiers: Qualified Code(s): J44.9 - Chronic obstructive pulmonary disease, unspecified Hospital course: Mr. Murrell is a 73 year old male - Time Spent with Patient Total time spent providing and/or coordinating discharge services: - Discharge Medications Prescriptions: Continued Tramadol HCl [Ultram] 50 mg PO TID PRN PRN Reason: Pain Rivaroxaban [Xarelto] 20 mg PO 1800 Ranitidine HCl [Acid Devil Tender] 150 mg PO BID Potassium Chloride [Klor-Con 10] 20 meq PO DAILY Lisinopril [Zestril] 40 mg PO DAILY Insulin Glargine,Hum.rec.anlog [Basaglar Kwikpen U-100] 50 unit SQ BID Insulin ASPART [NovoLOG] 20 unit SQ QPM Insulin ASPART [NovoLOG] 18 unit SQ QAM Fluticasone Furoate [Arnuity Ellipta] 50 mcg IH DAILY PRN PRN Reason: Allergy Symptoms Dulaglutide [Trulicity] 1.5 mg SQ TH Diltiazem CD (24hr) [Cardizem CD] 180 mg PO DAILY Cholecalciferol (D-3) [Vitamin D] 2,000 unit PO DAILY Chlorthalidone 25 mg PO DAILY Baclofen [Lioresal] 10 mg PO BID PRN PRN Reason: Muscle Spasm Atorvastatin Calcium [Lipitor] 80 mg PO HS Calcium Carbonate/Vitamin D3 [Calcium 500-Vit D3 200 Caplet] 1 tab PO BID Metformin HCl [Glucophage] 1,000 mg PO BID Home Medications: Atorvastatin Calcium [Lipitor] 80 mg PO HS 11/20/18 [History] Baclofen [Lioresal] 10 mg PO BID PRN 11/20/18 [History] Calcium Carbonate/Vitamin D3 [Calcium 500-Vit D3 200 Caplet] 1 tab PO BID 11/20/18 [History] Chlorthalidone 25 mg PO DAILY 11/20/18 [History] Cholecalciferol (D-3) [Vitamin D] 2,000 unit PO DAILY 11/20/18 [History] Diltiazem CD (24hr) [Cardizem CD] 180 mg PO DAILY 11/20/18 [History] Dulaglutide [Trulicity] 1.5 mg SQ TH 11/20/18 [History] Fluticasone Furoate [Arnuity Ellipta] 50 mcg IH DAILY PRN 11/20/18 [History] Insulin ASPART [NovoLOG] 18 unit SQ QAM 11/20/18 [History] Insulin ASPART [NovoLOG] 20 unit SQ QPM 11/20/18 [History] Insulin Glargine,Hum.rec.anlog [Basaglar Kwikpen U-100] 50 unit SQ BID 11/20/18 [History] Lisinopril [Zestril] 40 mg PO DAILY 11/20/18 [History] Metformin HCl [Glucophage] 1,000 mg PO BID 11/20/18 [History] Potassium Chloride [Klor-Con 10] 20 meq PO DAILY 11/20/18 [History] Ranitidine HCl [Acid Devil Tender] 150 mg PO BID 11/20/18 [History] Rivaroxaban [Xarelto] 20 mg PO 1800 11/20/18 [History] Tramadol HCl [Ultram] 50 mg PO TID PRN 11/20/18 [History] Allergies/Adverse Reactions: Allergy/AdvReac Type Severity Reaction Status Date / Time nifedipine [From Procardia] AdvReac Headache Verified 11/20/18 23:58 Date of admission: 11/20/18 20:26 Primary care physician: PCP NONE Consults: 11/20/18 19:11 Consult to Gastroenterology [CONS] Stat Consulting Provider: Gastroenterology Eva Reason for Consult: ERCP for possible CBD obstruction/ascending cholangitis Call Completed: Yes 11/21/18 06:00 Consult to Cardiology [CONS] Routine Comment: Consulting Provider: Cardiology Eva Reason for Consult: elevated troponin Call Completed: No Consult to Gastroenterology [CONS] Routine Consulting Provider: Gastroenterology Eva Reason for Consult: Choledolithiasis elevated Bili. ERCP evaluation. Call Completed: No Consult to Physical Therapy [CONS] Routine Comment: Evaluate, develop and implement POC Reason for Consult: Rotator cuff shoulder pain. Does patient have active BEDREST order?: No Is patient medically & hemodynamically stable?: Yes 11/23/18 11:00 Consult to Surgery [CONS] Routine Consulting Provider: Surgery [facility] Surgical Reason for Consult: Possible cholecysitits requiring chlecystectomy Call Completed: Yes - Constitutional Vitals: Temp Pulse Resp BP Pulse Ox 98.0 F 93 14 149/88 97 11/26/18 11:29 11/26/18 11:29 11/26/18 11:29 11/26/18 11:29 11/26/18 11:29 Exam: NAD - Head Head exam: Present: atraumatic, normocephalic - Eye Eye exam: Present: PERRL, conjuntiva pink, sclera anicteric Pupils: Present: PERRL - Neck Neck exam general surgery: Present: supple, trachea midline. Absent: lymphadenopathy - Respiratory Respiratory exam: Present: CTAB. Absent: accessory muscle use, rales, rhonchi, wheezes - Cardiovascular Cardiovascular exam: Present: RRR, +S1, +S2. Absent: diastolic murmur, gallop, rubs, systolic murmur - GI/Abdominal GI/Abdominal exam: Present: normal bowel sounds, soft, no peritoneal signs. Absent: distended, tenderness - Extremities Exam Extremities exam: Present: warm, radial pulses palpable and symmetrical. Absent: calf tenderness, cyanotic, pedal edema - Neurological Exam Neurological exam: Present: CN II-XII intact, oriented X3, no focal deficits. Absent: pronater drift, facial droop, speech deficit - Skin Skin exam: Present: dry, intact - Patient Status Disposition: Home, Self-Care Condition: Fair - Discharge Instructions Instructions: Laparoscopic Cholecystectomy (DC) Follow Up With: Fernando Weber [Partnered Physician] - 12/09/18 8:50 am - VTE Reasons for not Prescribing Prophylaxis: Not indicated-Anticoagulated or INR therapeutic
[2018-11-26] MEDS ORDERED: Insulin LISPRO 300 UNITS/3 ML VIAL SQ STA (12:24)
[2018-11-26] MEDS ORDERED: *HR* Dextrose 50 % in Water (Syg) 50 ML SYRINGE IVP PRN (13:06)
[2018-11-26] MEDS ORDERED: Insulin Human Regular 100 UNIT in 0.9 % Sodium Chloride 100 ML IVC SCH (13:15)
[2018-11-26 15:28] VITALS: BP 133/79
[2018-11-26] MEDS ORDERED: Insulin LISPRO 300 UNITS/3 ML VIAL SQ SCH (21:00)
== END 2018-11-26 16:30 | disposition home or self-care (01) | DRG 418 ==
LOC: EMEROOARM 17:22 → 3ANU 17:22 → SUATTDRO 20:26
PROVIDERS: ADMIT Internal Medicine; ATTEND Internal Medicine